=== PATIENT | female | born 1930 | race Caucasian/White ===

== ENCOUNTER 2016-05-11 11:39 | Inpatient (IN) | payer MEDICARE ==
[2016-05-11] MEDS ORDERED: SODIUM CHLORIDE 0.9% 1,000 ML IV STA (12:28)
[2016-05-11] MEDS ORDERED: HYDROmorphone 1 MG/ML 1 ML SYRINGE IVP STA (12:28)
[2016-05-11] MEDS ORDERED: IV VANCOMYCIN PER PHARMACY 1 EACH MISC MISCELLANE PRN (12:30)
[2016-05-11] MEDS ORDERED: AMPICILLIN-SULBACTAM 3 GM in SODIUM CHLORIDE 0.9% 100 ML IVPB STA (12:30)
[2016-05-11] MEDS ORDERED: VANCOMYCIN 1,000 MG in SODIUM CHLORIDE 0.9% 250 ML IVPB STA (12:30)
[2016-05-11 13:56] LABS: Basophils # (A) 0.1 k/uL (0-0.2); Basophils % (A) 1 %; CH 31.9; CHCM 32.1; Eosinophils # (A) 0.1 k/uL (0-0.7); Eosinophils % (A) 1 %; HCT 35.1 % (34.0-46.0); HDW 2.41; Luc % (Auto) 1; Lymphocytes # (A) 0.9 k/uL (1.0-4.8); Lymphocytes % (A) 13 %; MCH 31.4 pg (25.0-35.0); MCHC 31.4 g/dL (31.0-37.0); Macrocytosis Slight; Mean Platelet Volume 7.5; Monocytes # (A) 0.6 k/uL (0-1.0); Monocytes % (A) 8 %; Neutrophils # (A) 5.3 k/uL (1.3-7.7); Neutrophils % (A) 76 %; RBC 3.51 m/uL (3.80-5.40); RDW 13.9 % (11.5-15.5); WBC (Perox) 7.63
[2016-05-11 14:11] LABS: INR 1.1 (<1.1); Partial Thromboplastin Time 25.7 sec (22.0-30.0); Prothrombin Time 10.7 sec (9.0-12.0)
[2016-05-11 14:21] LABS: Calcium 8.8 mg/dL (8.4-10.2); Potassium 5.2 mmol/L (3.5-5.1); Total Bilirubin 0.7 mg/dL (0.2-1.3); Total Protein 6.6 g/dL (6.3-8.2)
[2016-05-11 14:40] LABS: Erythrocyte Sedimentation Rate 62 mm/hr (0-20)
--- NOTE | 2016-05-11 14:59 | ED ---
General Adult HPI - General Chief complaint: Recheck/Abnormal Lab/Rx Stated complaint: poss infection on leg Source: family Mode of arrival: wheelchair Limitations: no limitations - History of Present Illness Initial comments: This 85-year-old white female presents with a complaint of a left leg infection. This is been present for approximately 2 months. She has had worsening of her symptoms in the last past week. Family relates that it is more painful and exhibiting a malodorous scent. She normally gets treated at the wound care center. They apparently have applied different types of ointments or creams to try to get it better. She also has a home visiting nurse 2 times a week to recheck the wound. They deny any known fever, chest pain, or shortness of breath. Her leg pain is moderate. She apparently has been somewhat more fatigued her drowsy recently per family. No other complaints or modifying factors. - Related Data Home Medications Medication Instructions Recorded Confirmed Levothyroxine Sodium [Synthroid] 125 mcg PO DAILY 10/14/14 05/11/16 Metoprolol Tartrate [Lopressor] 50 mg PO BID 10/14/14 05/11/16 levETIRAcetam [Keppra] 500 mg PO BID 10/14/14 05/11/16 Gabapentin [Neurontin] 300 mg PO TID 02/08/15 05/11/16 ALPRAZolam 0.5 mg PO TID PRN 12/13/15 05/11/16 Aspirin EC [Ecotrin Low Dose] 81 mg PO DAILY 12/13/15 05/11/16 Furosemide 20 mg PO MOWEFR 12/13/15 05/11/16 Losartan Potassium 100 mg PO DAILY 12/13/15 05/11/16 Potassium Chloride ER [K-Dur 20] 20 meq PO BID 01/08/16 05/11/16 Donepezil [Aricept] 10 mg PO DAILY 05/11/16 05/11/16 Magnesium Chloride [Slow-Mag] 64 mg PO DAILY 05/11/16 05/11/16 Allergies Allergy/AdvReac Type Severity Reaction Status Date / Time cat dander Allergy Unknown Verified 05/11/16 13:55 dog dander Allergy Unknown Verified 05/11/16 13:55 Sulfa (Sulfonamide Allergy Unknown Verified 05/11/16 13:55 Antibiotics) dust Allergy Unknown Uncoded 05/11/16 11:46 Review of Systems ROS Statement: Those systems with pertinent positive or pertinent negative responses have been documented in the HPI. ROS Other: All systems not noted in ROS Statement are negative. 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 History of Any Multi-Drug Resistant Organisms: None Reported Past Surgical History: Adenoidectomy, Bladder Surgery, Breast Surgery, Hysterectomy, Joint Replacement, Orthopedic Surgery, Tonsillectomy Additional Past Surgical History / Comment(s): Brain surgery 1977, left ankle ORIF surgery, R hip replacement, kevin in L leg due to fx greater trochanteric, R shoulder arthroscopy, bladder surgery, L breast lumpectomy, cataract bilat eyes , colonoscopy 2011 due to rectal bleed. Past Anesthesia/Blood Transfusion Reactions: No Reported Reaction Additional Past Anesthesia/Blood Transfusion Reaction / Comment(s): Pt recieved blood in 2006 post operatively. Past Psychological History: No Psychological Hx Reported Additional Psychological History / Comment(s): Pt's zac and 2 granddaughters live with patient. Pt is wheel chair bound. Pt states she receives home care not sure what group comes out. A nurse comes in and examines the pt and checks V /S and pt states does L lower leg wound care. Pt feeds herself. Family assist her up into w/c and zac helps her bathe. Son-in-law drives pt to appts. She states her grand daughter manages her medication. Smoking Status: Never smoker Past Alcohol Use History: None Reported Past Drug Use History: None Reported - Past Family History Mother Family Medical History: No Reported History Son(s) Family Medical History: Diabetes Mellitus General Exam - General Exam Comments Initial Comments: GENERAL: The patient is well nourished and well hydrated. VITAL SIGNS: Heart rate, blood pressure, respiratory rate reviewed as recorded in nurse's notes. EYES: Pupils are round and reactive. Extraocular movements are intact. No conjunctival / lid redness or swelling. ENT: No external evidence of injury, swelling, or ecchymosis. Airway is patent. Throat is clear. NECK: Nontender. No swelling or evidence of injury. No subcutaneous emphysema. Trachea is midline. No thyroid mass. HEART: Regular rate and rhythm. Good peripheral pulses. LUNGS/CHEST: Breath sounds clear and equal bilaterally. No rales, rhonchi, or wheezes. No ecchymosis, subcutaneous emphysema, or tenderness. ABDOMEN: Abdomen soft without tenderness. No palpable masses or organomegaly. No peritoneal signs. No abdominal wall swelling or ecchymosis. EXTREMITIES: No extremity tenderness. Normal muscle tone and function. No thoracolumbar tenderness. NEUROLOGIC: Sensation is grossly intact. Cranial nerve exam reveals face is symmetrical, tongue is midline, speech is clear. SKIN: There are 2 large ulcerative lesions present to the left leg distally. There is a malodorous scent. This is on the lateral aspect of the left leg. There is eschar type formation over the middle with surrounding erythema but no current drainage. PSYCHIATRIC: Alert and oriented. Appropriate behavior and judgment. Limitations: no limitations Course Vital Signs 05/11/16 05/11/16 05/11/16 11:42 15:04 15:05 Temperature 97.8 F 97.1 F L Pulse Rate 83 79 Respiratory 14 18 Rate Blood Pressure 126/60 145/64 O2 Sat by Pulse 90 L 100 Oximetry Medical Decision Making - Medical Decision Making The patient was seen and examined. All diagnostics were reviewed. The EKG shows atrial fibrillation with a heart rate of 66. The patient also has a right bundle-branch block and possible LVH. The QRS duration is 132, QTC intervals 440. An IV is started patient receives vancomycin as well as Unasyn and some pain medication. She is feeling improved on recheck. The laboratories reviewed with no overt significant abnormalities this point. The patient had an x-ray of her left leg. This does show previous open reduction internal fixation of her distal left fibula. No acute abnormalities are identified. Chest x-ray is also completed as patient's pulse ox was 90%. This does not show any evidence of pneumonia but does show some mild pulmonary vascular congestion. The case is discussed with internal medicine and patient admitted to the hospital with infectious disease and vascular surgery to consult. - Lab Data Result diagrams: 05/11/16 13:45 05/11/16 13:45 Lab Results 05/11/16 05/11/16 05/11/16 Range/Units 13:45 13:45 13:45 WBC 7.0 (3.8-10.6) k/uL RBC 3.51 L (3.80-5.40) m/uL Hgb 11.0 L (11.4-16.0) gm/dL Hct 35.1 (34.0-46.0) % MCV 100.0 (80.0-100.0) fL MCH 31.4 (25.0-35.0) pg MCHC 31.4 (31.0-37.0) g/dL RDW 13.9 (11.5-15.5) % Plt Count 233 (150-450) k/uL Neutrophils % 76 % Lymphocytes % 13 % Monocytes % 8 % Eosinophils % 1 % Basophils % 1 % Neutrophils # 5.3 (1.3-7.7) k/uL Lymphocytes # 0.9 L (1.0-4.8) k/uL Monocytes # 0.6 (0-1.0) k/uL Eosinophils # 0.1 (0-0.7) k/uL Basophils # 0.1 (0-0.2) k/uL Macrocytosis Slight ESR 62 H (0-20) mm/hr PT 10.7 (9.0-12.0) sec INR 1.1 (<1.1) APTT 25.7 (22.0-30.0) sec Sodium 142 (137-145) mmol/L Potassium 5.2 H (3.5-5.1) mmol/L Chloride 108 H (98-107) mmol/L Carbon Dioxide 22 (22-30) mmol/L Anion Gap 12 mmol/L BUN 19 H (7-17) mg/dL Creatinine 1.09 H (0.52-1.04) mg/dL Est GFR (MDRD) Af Amer 58 (>60 ml/min/1.73 sqM) Est GFR (MDRD) Non-Af 47 (>60 ml/min/1.73 sqM) Glucose 95 (74-99) mg/dL Calcium 8.8 (8.4-10.2) mg/dL Total Bilirubin 0.7 (0.2-1.3) mg/dL AST 15 (14-36) U/L ALT 25 (9-52) U/L Alkaline Phosphatase 84 (38-126) U/L C-Reactive Protein 64.4 H (<10.0) mg/L Total Protein 6.6 (6.3-8.2) g/dL Albumin 3.2 L (3.5-5.0) g/dL Disposition Clinical Impression: Chronic ulcer of ankle, Skin infection Disposition: ADMITTED IP TO THIS [facility] Condition: Fair Time of Disposition: 15:35 Decision Date: 05/11/16 Decision Time: 15:35
[2016-05-11] MEDS ORDERED: NALOXONE 0.4 MG/ML 1 ML VIAL IV PRN (15:00)
[2016-05-11] MEDS ORDERED: ONDANSETRON 4 MG/2 ML VIAL IVP PRN (15:00)
[2016-05-11 15:01] LABS: C Reactive Protein 64.4 mg/L (<10.0)
--- NOTE | 2016-05-11 15:06 | XR ---
EXAMINATION TYPE: XR tibia fibula LT DATE OF EXAM: 05/11/2016 2:53 PM COMPARISON: 10/01/2012 HISTORY: Pain for 2 months TECHNIQUE: 2 views FINDINGS: There is a plate fixing a distal fibula. There is vascular calcification. There is osteopen ia at the ankle joint and knee joint. I see no acute fracture. IMPRESSION: There is osteopenia that is new compared to old exam. No acute bony abnormality.
--- NOTE | 2016-05-11 15:08 | XR ---
EXAMINATION TYPE: XR chest 2V DATE OF EXAM: 05/11/2016 2:53 PM COMPARISON: 01/31/2016 HISTORY: Weakness. Chest pain. TECHNIQUE: Frontal and lateral views of the chest are obtained. FINDINGS: There is a poor inspiration. There is some atelectasis at the left lung base. Thoracic aor ta is atheromatous. There is mild pulmonary congestion. I see no pleural effusion. Bones are osteopen ic. IMPRESSION: Inspiration is less than old exam. There is left basilar atelectasis. Mild pulmonary con gestion without overt heart failure.
[2016-05-11 17:35] LABS: Glucose,Whole Blood 82 mg/dL (75-99)
[2016-05-11] MEDS: metroNIDAZOLE-NS PMX 500 MG in SALINE 1 100ML.BAG IVPB SCH ×2 (17:40→22:54)
[2016-05-11] MEDS: SODIUM CHLORIDE 0.9% 1,000 ML IV SCH (17:40)
[2016-05-11] MEDS: GABAPENTIN 300 MG CAP PO SCH ×2 (17:42→21:34)
[2016-05-11] MEDS: AMPICILLIN-SULBACTAM 3 GM in SODIUM CHLORIDE 0.9% 100 ML IVPB SCH (18:50)
[2016-05-11] MEDS: METOPROLOL TARTRATE 50 MG TAB PO SCH (21:34)
[2016-05-11] MEDS: POTASSIUM CHLORIDE ER 20 MEQ TAB.ER PO SCH (21:34)
[2016-05-11] MEDS: levETIRAcetam 500 MG TAB PO SCH (21:35)
[2016-05-11] MEDS: ACETAMINOPHEN TAB 325 MG TAB PO PRN (21:45)
[2016-05-11] MEDS: ALPRAZolam 0.5 MG TAB PO PRN (21:46)
[2016-05-11 21:54] LABS: Glucose,Whole Blood 149 mg/dL (75-99)
[2016-05-12] MEDS: AMPICILLIN-SULBACTAM 3 GM in SODIUM CHLORIDE 0.9% 100 ML IVPB SCH ×3 (00:27→12:51)
[2016-05-12] MEDS: HYDROmorphone 1 MG/ML 1 ML SYRINGE IV PRN ×2 (02:51→18:40)
[2016-05-12] MEDS: LEVOTHYROXINE 125 MCG TAB PO SCH (05:30)
[2016-05-12 07:22] LABS: Glucose,Whole Blood 84 mg/dL (75-99)
[2016-05-12] MEDS: PANTOPRAZOLE 40 MG/10 ML VIAL IV SCH (08:27)
[2016-05-12] MEDS: VANCOMYCIN 1,750 MG in SODIUM CHLORIDE 0.9% 250 ML IVPB SCH (08:27)
[2016-05-12] MEDS: DONEPEZIL 10 MG TAB PO SCH (08:28)
[2016-05-12] MEDS: POTASSIUM CHLORIDE ER 20 MEQ TAB.ER PO SCH ×2 (08:28→20:37)
[2016-05-12] MEDS: METOPROLOL TARTRATE 50 MG TAB PO SCH ×2 (08:28→20:37)
[2016-05-12] MEDS: ENOXAPARIN 40 MG/0.4 ML SYRINGE SQ SCH (08:28)
[2016-05-12] MEDS: ASPIRIN 81 MG CHEW PO SCH (08:28)
[2016-05-12] MEDS: levETIRAcetam 500 MG TAB PO SCH ×2 (08:28→20:37)
[2016-05-12] MEDS: LOSARTAN 50 MG TAB PO SCH (08:28)
[2016-05-12] MEDS: MAGNESIUM OXIDE 250 MG TAB PO SCH (08:28)
[2016-05-12] MEDS: GABAPENTIN 300 MG CAP PO SCH ×3 (08:28→20:37)
[2016-05-12] MEDS: metroNIDAZOLE-NS PMX 500 MG in SALINE 1 100ML.BAG IVPB SCH ×3 (11:30→23:39)
[2016-05-12 12:31] LABS: Glucose,Whole Blood 76 mg/dL (75-99)
[2016-05-12] MEDS: SODIUM CHLORIDE 0.9% 1,000 ML IV SCH (12:51)
--- NOTE | 2016-05-12 13:47 | HP ---
DATE OF ADMISSION: 05/11/2016 PRESENTING COMPLAINT: Infected left leg ulcer. HISTORY OF PRESENTING COMPLAINT: This is an 85-year-old patient who follows with Dr. Casey. Patient's chronic stable medical conditions include COPD, stroke with left-sided weakness, dementia, diabetes mellitus type 2, GERD, hyperlipidemia, hypertension, seizure disorder. Patient being treated for left leg wound by Dr. De Leon [facility]. Patient has multiple family members living at home. Patient's wound on the left leg started to deteriorate. Foul smelling with discharge. Hence, patient was sent in. REVIEW OF SYSTEMS: CONSTITUTIONAL: Tired. HEENT: Decreased hearing. RESPIRATORY: None. CARDIOVASCULAR: None. GENITOURINARY: None. MUSCULOSKELETAL: Pain in many joints. DERMATOLOGICAL: Left leg wound. HEMATOLOGIC: None. LYMPHATICS: None. PSYCHIATRY: Forgetful. NEUROLOGICAL: Left-sided weakness. PAST MEDICAL HISTORY: COPD, stroke with left-sided weakness, dementia, diabetes mellitus type 2, GERD, GI bleed, hyperlipidemia, hypertension, memory impairment, osteoarthritis, seizure disorder, breast cancer, lumpectomy, irregular heartbeat, seizure disorder 2000, arthritis, peptic ulcer disease, hypothyroidism, umbilical hernia, varicosities, left leg wound. PAST SURGICAL HISTORY: Bladder surgery, hysterectomy, left ankle ORIF, right hip replacement, left leg fracture greater trochanter, right shoulder arthroscopy, left breast lumpectomy. SOCIAL HISTORY: Patient has 2 daughters, granddaughters. She is able to feed herself. No smoking. No alcohol. FAMILY HISTORY: Mother had 2 strokes. HOME MEDICATIONS: 1. Keppra 500 mg p.o. b.i.d. 2. Potassium 20 mEq b.i.d. 3. Lopressor 50 mg p.o. b.i.d. 4. Slow-Mag 64 mg p.o. daily. 5. Losartan 100 mg p.o. daily. 6. Synthroid 125 mcg p.o. daily. 7. Neurontin 300 mg p.o. t.i.d. 8. Lasix 20 mg p.o. Friday, Friday and Friday. 9. Aricept 10 mg p.o. daily. 10. Aspirin 81 mg p.o. daily. 11. Xanax 0.5 t.i.d. p.r.n. ALLERGIES TO CAT, DOG, SULFUR. On examination, temperature 97.8, pulse 83, respiratory rate 14, blood pressure 120/60, pulse ox 98% on room air. GENERAL APPEARANCE: Well built, BMI of 42, sitting up, tired appearing. EYES: Pupils equal. Conjunctivae normal. HEENT: Oral cavity normal. NECK: JVD not raised. Mass not palpable. RESPIRATORY: Effort normal. LUNGS: Fair entry. CARDIOVASCULAR: First and second sounds normal. No edema. ABDOMEN: Soft, nontender. Liver and spleen not palpable. LYMPHATIC: No lymph nodes palpable in neck or axillae. PSYCHIATRY: Alert and oriented x3. Mood and affect low appearing. NEUROLOGICAL: Pupils equal. Cranial nerves intact. EXTREMITIES: The patient has eschar on the left lateral aspect. A very foul smelling anaerobic smell. An area of white discoloration too and necrosis present. Picture will be in the patient's nursing chart. INVESTIGATIONS: White count 7, hemoglobin 11, potassium 5.2, BUN 19, creatinine 1.09. ASSESSMENT: 1. Acute severe infected left lower extremity left wound having failed outpatient treatment in a diabetic patient, probably from neuropathy. 2. Left hemiparesis from old stroke in a right-handed patient. 3. Alzheimer's dementia late onset with no behavioral disturbance. 4. Diabetes mellitus type 2, chronically on oral hypoglycemic. 5. Gastroesophageal reflux disease. 6. Hyperlipidemia. 7. Essential hypertension. 8. Primary osteoarthritis in multiple joints. 9. Chronic seizure disorder. PLAN: Patient is put on vancomycin. Because of the anaerobic smell will also add Flagyl. Consultation will be done to Dr. De Leon from vascular surgery and Dr. Shah from infectious disease. Home medications are resumed.
[2016-05-12 17:22] LABS: Glucose,Whole Blood 52 mg/dL (75-99)
[2016-05-12 17:31] LABS: Glucose,Whole Blood 64 mg/dL (75-99)
[2016-05-12 18:21] LABS: Glucose,Whole Blood 94 mg/dL (75-99)
[2016-05-12] MEDS: COLLAGENASE 250 UNIT/GM OINTMENT 30 GM TUBE TOPICAL SCH (18:52)
[2016-05-12 21:22] LABS: Glucose,Whole Blood 81 mg/dL (75-99)
[2016-05-13] MEDS: ALPRAZolam 0.5 MG TAB PO PRN (02:35)
[2016-05-13] MEDS: LEVOTHYROXINE 125 MCG TAB PO SCH (06:55)
[2016-05-13 07:38] LABS: Glucose,Whole Blood 71 mg/dL (75-99)
[2016-05-13] MEDS: metroNIDAZOLE-NS PMX 500 MG in SALINE 1 100ML.BAG IVPB SCH ×3 (07:39→23:39)
[2016-05-13] MEDS: VANCOMYCIN 1,750 MG in SODIUM CHLORIDE 0.9% 250 ML IVPB SCH (08:42)
[2016-05-13] MEDS ORDERED: FUROSEMIDE 20 MG TAB PO SCH (09:00)
--- NOTE | 2016-05-13 09:47 | P.GSCN ---
History of Present Illness History of present illness: 85-year-old white female, patient is known to me from the wound clinic she has developed a large wound on the left leg lateral aspect with necrotic skin and has been treated with local wound care and also she has some blistering is coming home the wound has become larger and and infected there is marked large area of skin necrosis noted at the lateral aspect of the leg Medical history history of A. fib, history of COPD, history of hypertension, history of seizure disorder, surgical history patient had a history of breast cancer CVA in the past infected left arm and leg Surgical history patient had hysterectomy and Breast Cancer Surgery in the past On Examination Patient Patient Has a Dementia Neck Is Supple No Free Range Of Motion Chest Examination Chest Chest Is Clear First and Second Sound Is Normal Abdomen Soft Nontender Femoral Pulses Are Present Posterior Tibial Dorsal Pedis Not Palpable Patient Has a Large Wound Lateral Aspect of the Left Leg with the Necrotic Skin Plan Is We Will Discuss with the Family Patient Has a Poor Circulation Healing Is Going to Be Issue We Will Discuss about a Major Amputation Thank You Very Much Past Medical History Past Medical History: Atrial Fibrillation, Cancer, Chest Pain / Angina, COPD, CVA/TIA, Dementia, Diabetes Mellitus, GERD/Reflux, GI Bleed, Hyperlipidemia, Hypertension, Memory Impairment, Osteoarthritis (OA), Pneumonia, Seizure Disorder, Skin Disorder, Thyroid Disorder, Vascular Disorder Additional Past Medical History / Comment(s): lt adrenal mass, breast cancer with lumpectomy, NIDDM type II, 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 History of Any Multi-Drug Resistant Organisms: None Reported Past Surgical History: Adenoidectomy, Bladder Surgery, Breast Surgery, Hysterectomy, Joint Replacement, Orthopedic Surgery, Tonsillectomy Additional Past Surgical History / Comment(s): Brain surgery 1977, left ankle ORIF surgery, R hip replacement, kevin in L leg due to fx greater trochanteric, R shoulder arthroscopy, bladder surgery, L breast lumpectomy, cataract bilat eyes , colonoscopy 2011 due to rectal bleed. Past Anesthesia/Blood Transfusion Reactions: No Reported Reaction Additional Past Anesthesia/Blood Transfusion Reaction / Comm: Pt recieved blood in 2006 post operatively. Past Psychological History: No Psychological Hx Reported Additional Psychological History / Comment(s): Pt's zac and 2 granddaughters live with patient. Pt is wheel chair bound. Pt states she receives home care not sure what group comes out. A nurse comes in and examines the pt and checks V /S and pt states does L lower leg wound care. Pt feeds herself. Family assist her up into w/c and zac helps her bathe. Son-in-law drives pt to appts. She states her grand daughter manages her medication. Smoking Status: Never smoker Past Alcohol Use History: None Reported Past Drug Use History: None Reported - Past Family History Mother Family Medical History: No Reported History Son(s) Family Medical History: Diabetes Mellitus Medications and Allergies Home Medications Medication Instructions Recorded Confirmed Type Levothyroxine Sodium [Synthroid] 125 mcg PO DAILY 10/14/14 05/11/16 History Metoprolol Tartrate [Lopressor] 50 mg PO BID 10/14/14 05/11/16 History levETIRAcetam [Keppra] 500 mg PO BID 10/14/14 05/11/16 History Gabapentin [Neurontin] 300 mg PO TID 02/08/15 05/11/16 History ALPRAZolam 0.5 mg PO TID PRN 12/13/15 05/11/16 History Aspirin EC [Ecotrin Low Dose] 81 mg PO DAILY 12/13/15 05/11/16 History Furosemide 20 mg PO MOWEFR 12/13/15 05/11/16 History Losartan Potassium 100 mg PO DAILY 12/13/15 05/11/16 History Potassium Chloride ER [K-Dur 20] 20 meq PO BID 01/08/16 05/11/16 History Donepezil [Aricept] 10 mg PO DAILY 05/11/16 05/11/16 History Magnesium Chloride [Slow-Mag] 64 mg PO DAILY 05/11/16 05/11/16 History Allergies Allergy/AdvReac Type Severity Reaction Status Date / Time cat dander Allergy Unknown Verified 05/11/16 13:55 dog dander Allergy Unknown Verified 05/11/16 13:55 Sulfa (Sulfonamide Allergy Unknown Verified 05/11/16 13:55 Antibiotics) dust Allergy Unknown Uncoded 05/11/16 11:46 Surgical - Exam Vital Signs Temp Pulse Resp BP Pulse Ox 97.8 F 83 14 126/60 90 L 05/11/16 11:42 05/11/16 11:42 05/11/16 11:42 05/11/16 11:42 05/11/16 11:42 Results - Labs 05/11/16 13:45 05/11/16 13:45 Abnormal Lab Results - Last 24 Hours (Table) 05/12/16 05/12/16 05/13/16 Range/Units 17:02 17:28 07:33 POC Glucose (mg/dL) 52 L 64 L 71 L (75-99) mg/dL Microbiology - Last 24 Hours (Table) 05/12/16 15:00 Gram Stain - Preliminary Leg - Left Wound Culture - Preliminary 05/12/16 15:00 Anaerobic Culture - Preliminary Leg - Left
--- NOTE | 2016-05-13 09:59 | PN ---
DATE OF SERVICE: 05/12/2016 PRESENTING COMPLAINT: Infected left lower extremity. INTERVAL HISTORY: This patient with multiple medical problems, really foul smelling necrotic, possibly fungal, infected left lower extremity wound, which has been followed as an outpatient. Patient has a very strong aerobic odor in the room. Review of systems done for constitutional, cardiovascular, GI, pulmonary; dermatologic; relevant findings as above. Current medications are reviewed that include IV Flagyl, Vanco and Unasyn. On examination, temperature 98.9, pulse 76, respiratory rate 16, blood pressure 100/53, pulse ox 96% on room air. GENERAL APPEARANCE: Lying in bed, tired appearing. EYES: Conjunctivae normal. NECK: JVD not raised. RESPIRATORY: Effort normal. Lungs are clear. CARDIOVASCULAR: First and second sounds normal. No edema. ABDOMEN: Soft, nontender. Liver and spleen not palpable. PSYCHIATRY: Alert and oriented x3. Mood and affect normal. LOWER EXTREMITY: Exam unchanged from yesterday. INVESTIGATIONS: Accu-Cheks are noted ASSESSMENT: 1. Acute severe infected left lower extremity wound having failed outpatient treatment. Looks to be rather severe and may even require amputation from what looks like extremely necrotic, very strong anaerobic odor, probably from a diabetic patient underlying neuropathy. 2. Left hemiparesis from old stroke in right-handed patient. 3. Alzheimer's dementia, late onset, no behavioral disturbance. 4. Diabetes mellitus type 2, chronically on oral hyperglycemic. 5. Gastroesophageal reflux disease. 6. Hyperlipidemia. 7. Essential hypertension. 8. Primary osteoarthritis of multiple joints. 9. Chronic seizure disorder. PLAN: Continue current medication and treatment plan. Dr. Shah of Infectious Disease is on the case and Dr. De Leon is just looking at it. The patient may need amputation. We will await further input from my colleagues.
[2016-05-13] MEDS: ASPIRIN 81 MG CHEW PO SCH (10:04)
[2016-05-13] MEDS: levETIRAcetam 500 MG TAB PO SCH ×2 (10:04→20:09)
[2016-05-13] MEDS: POTASSIUM CHLORIDE ER 20 MEQ TAB.ER PO SCH ×2 (10:04→20:11)
[2016-05-13] MEDS: ENOXAPARIN 40 MG/0.4 ML SYRINGE SQ SCH (10:04)
[2016-05-13] MEDS: MAGNESIUM OXIDE 250 MG TAB PO SCH (10:04)
[2016-05-13] MEDS: GABAPENTIN 300 MG CAP PO SCH ×3 (10:04→20:59)
[2016-05-13] MEDS: METOPROLOL TARTRATE 50 MG TAB PO SCH ×2 (10:04→20:11)
[2016-05-13] MEDS: COLLAGENASE 250 UNIT/GM OINTMENT 30 GM TUBE TOPICAL SCH (10:05)
[2016-05-13] MEDS: LOSARTAN 50 MG TAB PO SCH (10:05)
[2016-05-13] MEDS: DONEPEZIL 10 MG TAB PO SCH (10:05)
[2016-05-13] MEDS: PANTOPRAZOLE 40 MG/10 ML VIAL IV SCH (10:05)
[2016-05-13] MEDS: SODIUM CHLORIDE 0.9% 1,000 ML IV SCH (10:06)
[2016-05-13] MEDS: HYDROmorphone 1 MG/ML 1 ML SYRINGE IV PRN (10:15)
[2016-05-13 11:54] LABS: Glucose,Whole Blood 109 mg/dL (75-99)
--- NOTE | 2016-05-13 12:59 | CONS ---
DATE OF CONSULTATION: 05/12/2016 REASON FOR CONSULTATION: Left leg wound infection. HISTORY OF PRESENT ILLNESS: The patient is an 85 -year-old female who apparently has a wound on the left lower leg on the lateral side that has been there for more than two months now. The patient has been under the care of [facility] Apparently a different type of dressing has been used to help it heal but has not been healing over the last one week. The wound has become more painful. However, unfortunately, the patient is not able to describe the pain any further and has been more malodorous odor. No high-grade fever, rigors or chills has been noticed. With worsening discoloration which is now black eschar and smell and pain. The patient has been brought in to the ER for further evaluation. Patient did have x-rays of the neck which are negative for any bony changes. The patient was started on vancomycin and Unasyn and Flagyl. ID was asked to see the patient on examination for further recommendations in addition to the vascular surgery. All of this information has been obtained from review of the chart and talking to nursing staff, as the patient is not a very good historian and no family members available at bedside. REVIEW OF SYSTEMS: Could not be reliably obtained. The positive points have been mentioned in the HPI. PAST MEDICAL HISTORY: Significant for atrial fibrillation, coronary artery disease, COPD, CVA/TIA dementia, diabetes mellitus, gastroesophageal reflux disease, hypertension, hyperlipidemia, seizure disorder and breast cancer. PAST SURGICAL HISTORY: Lumpectomy, hysterectomy, tonsillectomy, left ankle ORIF and recent right hip replacement. SOCIAL HISTORY: No history of smoking, drinking or drug use. FAMILY HISTORY: Mother with history of diabetes mellitus. ALLERGY TO SULFA. MEDICATIONS: Currently include the patient is on: 1. Tylenol. 2. Xanax. 3. Aspirin. 4. Aricept. 5. Lovenox. 6. Neurontin. 7. Dilaudid. 8. Keppra. 9. Synthroid. 10. Cozaar. 11. Mag oxide. 12. Lopressor. 13. Flagyl. 14. Vancomycin. 15. Zofran. On examination, blood pressure is 114/63 with a pulse of 57, temperature 97.2. He is 98% on room air. General description is an elderly female, lying in bed in no distress. No tachypnea or accessory muscle of respiration use. HEENT examination shows slight pallor. There is no scleral icterus. Oral mucosal membranes dry. NECK: Trachea is central. No thyromegaly. LUNGS: Unlabored breathing. Clear to auscultation anteriorly. HEART: S1, S2 with regular rate. ABDOMEN: Soft, no tenderness. Left lower leg wound with black eschar and some surrounding erythema and foul smelling, wound base was evaluated and cultures were obtained. NEUROLOGICAL: The patient is awake, alert, oriented times three. Mood and affect normal. LABS: BUN of 19 and creatinine 1.09, creatinine 5.2. Liver enzymes normal. Hemoglobin is 11.2. No blood cultures were done. X-ray report with no new changes. DIAGNOSTIC IMPRESSION AND PLAN: Patient with left leg wound with secondary cellulitis with very malodorus smell. The wound with black eschar failing outpatient local treatment with likely a component of cellulitis. Unfortunately patient started on broad spectrum antibiotics. However, no cultures have been done that will decrease yield of these cultures that will ultimately decide the discharge antibiotic therapy. PLAN: 1. Wound cultures have been obtained. We will be requesting the wound cultures at the time of surgical debridement as the wound needs to be surgically debrided. 2. For local wound care, we will apply Santyl. For now, followed by moist dressing. 3. Keep the area off pressure. 4. Continue patient on vancomycin and Flagyl. However, discontinue the Unasyn. 5. We will follow up on the clinical condition and cultures to further adjust the medication if needed. Thank you for this consultation. Will follow this patient along with you. MIKE
--- NOTE | 2016-05-13 15:43 | P.PN ---
Subjective 85-year-old female was admitted to the hospital with a left lower extremity wound. Patient was a prickly started on Flagyl and vancomycin. Unknowing the pictures in the chart and on examination. Patient has a deep ulcer with prior medical or ankle fracture can be visually seen. Thereafter most of the history is obtained from chart review. Patient has advanced dementia and does not answer any questions properly. Objective - Vital Signs Vital signs: Vital Signs Temp 97.5 F L 05/13/16 07:00 Pulse 61 05/13/16 07:00 Resp 16 05/13/16 08:00 BP 109/54 05/13/16 07:00 Pulse Ox 98 05/13/16 07:00 Intake & Output 05/12/16 05/13/16 05/13/16 18:59 06:59 18:59 Intake Total 900 100 Balance 900 100 Intake: IV 100 Ampicillin-Sulbactam 3 gm 100 In Sodium Chloride 0.9% 100 ml @ 100 mls/hr IVPB Q6HR [facility] Rx#:[id number] Intake, IV Titration 800 Amount Sodium Chloride 0.9% 1, 800 000 ml @ 50 mls/hr IV . Q20H [facility] HUGO Rx#:[id number] Oral 100 Other: Voiding Method Incontinent Diaper Incontinent # Voids 1 1 1 - Exam Gen. appearance does not appear to be any distress Lungs diminished but sounds at the bases no rhonchi or wheezing Abdomen is soft nontender organomegaly Heart S1-S2 heard a systolic murmurs appreciated Lower extremities significant deep ulcers more predominantly in the posterior side there is another ulcer superiorly close to the joint.knee joint - Labs CBC & Chem 7: 05/11/16 13:45 05/11/16 13:45 Labs: Abnormal Lab Results - Last 24 Hours (Table) 05/12/16 05/12/16 05/13/16 Range/Units 17:02 17:28 07:33 POC Glucose (mg/dL) 52 L 64 L 71 L (75-99) mg/dL 05/13/16 Range/Units 11:51 POC Glucose (mg/dL) 109 H (75-99) mg/dL Microbiology - Last 24 Hours (Table) 05/12/16 15:00 Gram Stain - Preliminary Leg - Left Wound Culture - Preliminary 05/12/16 15:00 Anaerobic Culture - Preliminary Leg - Left Assessment and Plan Plan: #1 significant left lower x-ray cellulitis/concern for osteoarthritis #2 advanced dementia #3 hypothyroidism #4 history of hypertension #5 dyslipidemia #6 history of hypertension #7 peripheral neuropathy Plan Patient is recommended to undergo a left AKA. I did direct the RN to inform the family in regards to this. If surgical intervention is to aggressive goals of care should be addressed. With patient's advanced dementia and patient being bedridden prognosis is poor . Goals of care changing to comfort measures only were also be appropriate if family denies surgical intervention. Continue antibiotics. Blood pressures are appropriate. Continue ongoing care
[2016-05-13 16:54] LABS: Glucose,Whole Blood 69 mg/dL (75-99)
[2016-05-13 17:20] LABS: Glucose,Whole Blood 93 mg/dL (75-99)
[2016-05-13 21:09] LABS: Glucose,Whole Blood 109 mg/dL (75-99)
[2016-05-14] MEDS: HYDROmorphone 1 MG/ML 1 ML SYRINGE IV PRN ×2 (03:14→22:47)
[2016-05-14] MEDS ORDERED: VANCOMYCIN TROUGH DUE 1 EACH MISC MISCELLANE ONE (06:00)
[2016-05-14] MEDS: VANCOMYCIN 1,750 MG in SODIUM CHLORIDE 0.9% 250 ML IVPB SCH (06:41)
[2016-05-14] MEDS: SODIUM CHLORIDE 0.9% 1,000 ML IV SCH (06:41)
[2016-05-14] MEDS: LEVOTHYROXINE 125 MCG TAB PO SCH (06:41)
[2016-05-14 06:45] LABS: Basophils % (A) 0 %; CH 31.3; CHCM 30.9; Eosinophils # (A) 0.2 k/uL (0-0.7); Eosinophils % (A) 3 %; HDW 2.46; HGB 9.8 gm/dL (11.4-16.0); Hypochromasia Slight; Luc # (Auto) 0.14; Luc % (Auto) 2; Lymphocytes # (A) 1.2 k/uL (1.0-4.8); Lymphocytes % (A) 18 %; MCH 31.2 pg (25.0-35.0); MCHC 30.6 g/dL (31.0-37.0); MCV 101.8 fL (80.0-100.0); Macrocytosis Slight; Mean Platelet Volume 7.8; Monocytes # (A) 0.6 k/uL (0-1.0); Monocytes % (A) 10 %; Neutrophils # (A) 4.4 k/uL (1.3-7.7); Neutrophils % (A) 67 %; RBC 3.15 m/uL (3.80-5.40); RDW 13.7 % (11.5-15.5); WBC 6.5 k/uL (3.8-10.6); WBC (Perox) 6.72
[2016-05-14 07:01] LABS: Non-African American GFR(MDRD) >60 (>60 ml/min/1.73 sqM)
--- NOTE | 2016-05-14 07:28 | PN ---
DATE OF SERVICE: 05/13/2016 Reason for follow up is left leg wound. INTERVAL HISTORY: The patient is afebrile. She has been breathing comfortably. Denies any chest pain or shortness of breath, no cough. Apparently with some pain at the left leg area. On examination, blood pressure 130/63 with a pulse of 57, temperature 97.1. She is 100% on room air. General description is an elderly female lying in bed, in no distress. RESPIRATORY SYSTEM: Unlabored breathing. Clear to auscultation anteriorly. HEART: S1, S2. Regular rate and rhythm. ABDOMEN: Soft, no tenderness. Left leg wound is current dressed, no obvious drainage on the dressing. LABS: No new labs have been obtained today. Cultures obtained yesterday are currently pending. DIAGNOSTIC IMPRESSION AND PLAN: Patient left leg wound with secondary cellulitis. Patient at this time will continue with the vancomycin and Flagyl while awaiting for the culture to finalize. Continue supportive care.
[2016-05-14 07:43] LABS: Glucose,Whole Blood 80 mg/dL (75-99)
[2016-05-14 08:07] LABS: INR 1.2 (<1.1); Prothrombin Time 12.3 sec (9.0-12.0)
--- NOTE | 2016-05-14 08:49 | XR ---
EXAMINATION TYPE: XR chest 1V portable DATE OF EXAM: 05/14/2016 8:36 AM CLINICAL HISTORY: Difficulty breathing and CHF progress study. TECHNIQUE: Single AP portable upright view of the chest is obtained. COMPARISON: Chest x-ray from May 11, 2016 and older x-ray December 13, 2015 FINDINGS: There is stable mild cardiomegaly with atherosclerotic thoracic aorta. There is persistent left mid and basilar lateral linear atelectasis and/or scarring. There is patchy right basilar atele ctasis. No suspicious focal airspace opacity, pleural effusion, or pneumothorax is seen bilaterally. Osseous structures are demineralized. There is partial visualization of surgical hardware in the left humerus through proximal humeral fracture. IMPRESSION: Overall stable findings, cardiomegaly with left lower lung linear scarring and/or atele ctasis in the periphery, no suspicious focal infiltrate is present.
[2016-05-14] MEDS: metroNIDAZOLE-NS PMX 500 MG in SALINE 1 100ML.BAG IVPB SCH ×2 (09:44→20:40)
[2016-05-14] MEDS: PANTOPRAZOLE 40 MG/10 ML VIAL IV SCH (09:46)
[2016-05-14] MEDS: levETIRAcetam 500 MG TAB PO SCH ×2 (09:46→20:41)
[2016-05-14] MEDS: GABAPENTIN 300 MG CAP PO SCH ×3 (09:46→21:42)
[2016-05-14] MEDS: MAGNESIUM OXIDE 250 MG TAB PO SCH (09:47)
[2016-05-14] MEDS: POTASSIUM CHLORIDE ER 20 MEQ TAB.ER PO SCH ×2 (09:47→20:41)
[2016-05-14] MEDS: METOPROLOL TARTRATE 50 MG TAB PO SCH ×2 (09:47→20:41)
[2016-05-14] MEDS: DONEPEZIL 10 MG TAB PO SCH (09:47)
[2016-05-14] MEDS: LOSARTAN 50 MG TAB PO SCH (09:47)
[2016-05-14] MEDS: ENOXAPARIN 40 MG/0.4 ML SYRINGE SQ SCH (09:47)
[2016-05-14] MEDS: COLLAGENASE 250 UNIT/GM OINTMENT 30 GM TUBE TOPICAL SCH (09:48)
[2016-05-14] MEDS: ASPIRIN 81 MG CHEW PO SCH (10:00)
[2016-05-14 10:52] VITALS: BMI 42.9
[2016-05-14 11:55] LABS: Glucose,Whole Blood 70 mg/dL (75-99)
[2016-05-14] MEDS ORDERED: IV FLUID CONTINUATION 1,000 ML IV ONE (13:53)
--- NOTE | 2016-05-14 14:12 | P.PN ---
Progress Note - Text 85-year-old white female, patient has a large wound left foot lateral aspect of the lower leg with skin necrosis and foul odor smell wound patient has poor circulation on the right foot and leg the left leg area and left arm has fixed paralysis patient does not walk we discussed about above-knee amputation patient and family agrees we will proceed
--- NOTE | 2016-05-14 16:31 | PN ---
DATE OF SERVICE: 05/14/2016 REASON FOR FOLLOWUP: Left leg wound and cellulitis. INTERVAL HISTORY: The patient is afebrile. She has been breathing comfortably. Denies any chest pain or cough. No abdominal pain. Still has some pain in the left leg; unable to characterize it any further. On examination, blood pressure is 156/85 with a pulse of 55, temperature 98.3. She is 96% on room air. General description is an elderly female lying in bed in no distress. RESPIRATORY SYSTEM: Unlabored breathing. Clear to auscultation anteriorly. HEART: S1, S2. Regular rate and rhythm. ABDOMEN: Soft. No tenderness. Left leg wound is currently dressed up. No obvious drainage on the dressing. LABS: Hemoglobin is 9.8, white count 6.5. Wound is showing Gram-negative bacilli. DIAGNOSTIC IMPRESSION AND PLAN: Patient with non-healing wound to the left leg area, likely pressure ulcer with necrotic skin. Continue local wound care with Santyl. on culture Gram-negative is seen. Will add Fortaz to her antibiotic regimen of vancomycin and Flagyl. Continue supportive care. MIKE
[2016-05-14] MEDS ORDERED: MIDAZOLAM 2 MG/2 ML VIAL ONE (17:19)
[2016-05-14] MEDS ORDERED: KETAMINE 10 MG/ML 20 ML VIAL ONE (17:19)
[2016-05-14] MEDS ORDERED: LACTATED RINGERS 1,000 ML BAG IV ONE (17:19)
[2016-05-14] MEDS ORDERED: ceFAZolin 1,000 MG VIAL ONE (17:19)
[2016-05-14] MEDS ORDERED: SODIUM CHLORIDE 0.9% 100 ML BAG ONE (17:19)
[2016-05-14] MEDS: SODIUM CHLORIDE 0.9% 100 ML with ceFAZolin 2,000 MG IV ONE ×4 (17:52→20:40)
[2016-05-14] MEDS ORDERED: LACTATED RINGERS 1,000 ML IV ONE (18:39)
[2016-05-14] MEDS: LACTATED RINGERS 1,000 ML IV ONE ×2 (19:04→20:40)
[2016-05-14] MEDS ORDERED: BACITRACIN 500 UNIT/GM OINT 28.4 GM TUBE TOPICAL ONE (19:06)
[2016-05-14 19:49] LABS: Glucose,Whole Blood 79 mg/dL (75-99)
[2016-05-14 21:01] LABS: Glucose,Whole Blood 82 mg/dL (75-99)
[2016-05-14] MEDS: ALPRAZolam 0.5 MG TAB PO PRN (22:53)
[2016-05-15] MEDS: metroNIDAZOLE-NS PMX 500 MG in SALINE 1 100ML.BAG IVPB SCH ×2 (00:09→10:28)
[2016-05-15] MEDS: SODIUM CHLORIDE 0.9% 1,000 ML IV SCH ×2 (00:10→21:25)
[2016-05-15] MEDS: LEVOTHYROXINE 125 MCG TAB PO SCH (06:26)
[2016-05-15 07:34] LABS: Glucose,Whole Blood 116 mg/dL (75-99)
[2016-05-15] MEDS: GABAPENTIN 300 MG CAP PO SCH ×3 (08:35→21:26)
[2016-05-15] MEDS: PANTOPRAZOLE 40 MG/10 ML VIAL IV SCH (08:35)
[2016-05-15] MEDS: ENOXAPARIN 40 MG/0.4 ML SYRINGE SQ SCH (08:35)
[2016-05-15] MEDS: DONEPEZIL 10 MG TAB PO SCH (08:35)
[2016-05-15] MEDS: POTASSIUM CHLORIDE ER 20 MEQ TAB.ER PO SCH ×2 (08:35→21:26)
[2016-05-15] MEDS: VANCOMYCIN 1,500 MG in SODIUM CHLORIDE 0.9% 250 ML IVPB SCH (08:35)
[2016-05-15] MEDS: METOPROLOL TARTRATE 50 MG TAB PO SCH ×2 (08:36→21:26)
[2016-05-15] MEDS: levETIRAcetam 500 MG TAB PO SCH ×2 (08:36→21:25)
[2016-05-15] MEDS: MAGNESIUM OXIDE 250 MG TAB PO SCH (08:36)
[2016-05-15] MEDS: COLLAGENASE 250 UNIT/GM OINTMENT 30 GM TUBE TOPICAL SCH (08:37)
[2016-05-15] MEDS: ASPIRIN 81 MG CHEW PO SCH (08:37)
[2016-05-15] MEDS: LOSARTAN 50 MG TAB PO SCH (08:37)
--- NOTE | 2016-05-15 09:38 | OP ---
DATE OF SERVICE: SURGEON: LM GARCIA MD STEEL ANALYST: PREOPERATIVE DIAGNOSIS: Gangrene of the left lower leg. POSTOPERATIVE DIAGNOSIS: Gangrene of the left lower leg. OPERATION: Left above-knee amputation. ANESTHESIA: ESTIMATED BLOOD LOSS: SPECIMENS REMOVED: COMPLICATIONS: OPERATIVE FINDINGS: DESCRIPTION OF PROCEDURE: This patient has a long history of chronic wound to the left lower extremity. [facility] and her wound got infected of the left lower extremity and there is skin necrosis noted along the incision site and patient has severe peripheral vascular disease. She also had a left-sided stroke in the past. She is nonambulatory. Discussed with the family and we arranged for a left above-knee amputation. Patient was brought to the operating room. Under spinal, left leg was prepped and draped in sterile manner. The incision was made for the anterior flap, deepened through the skin, fat, and fascia and anterior compartment of muscles were divided and then attention was paid to the posterior compartment muscles. They were divided. Femoral artery and femoral vein was isolated and divided and tied with 0 Prolene. Then the lateral incision was made, deepened through the skin, fat, and fascia. Lateral compartment of the muscles divided and then we created a posterior flap. The incision deepened through skin, fat, and fascia. Posterior compartment muscles were divided. ( ) nerve was identified and divided and tied with 0 Prolene by traction. Specimen was removed. The wound was copiously irrigated with hydrogen peroxide and saline. Hemostasis was well-controlled and anterior and posterior compartment muscles were approximated with Vicryl to cover the femur. Then fascia was approximated with 0 Vicryl with interpreted suture and skin was closed with 5-0 nylon with mattress interrupted suture. Dressing applied. Patient tolerated the procedure well. Transferred to the recovery room in satisfactory condition.
[2016-05-15] MEDS: HYDROmorphone 1 MG/ML 1 ML SYRINGE IV PRN (10:30)
[2016-05-15] MEDS: cefTRIAXone 2,000 MG in SODIUM CHLORIDE 0.9% 100 ML IVPB SCH (11:21)
[2016-05-15 12:36] LABS: Glucose,Whole Blood 107 mg/dL (75-99)
[2016-05-15 14:22] LABS: Anion Gap 13 mmol/L; Calcium 8.4 mg/dL (8.4-10.2); Carbon Dioxide 19 mmol/L (22-30); Chloride 110 mmol/L (98-107); Glucose 116 mg/dL (74-99); Non-African American GFR(MDRD) >60 (>60 ml/min/1.73 sqM); Sodium 142 mmol/L (137-145)
[2016-05-15 14:27] LABS: Blood Urea Nitrogen 12 mg/dL (7-17); Potassium 5.1 mmol/L (3.5-5.1)
--- NOTE | 2016-05-15 17:20 | P.PN ---
Subjective Date of service 05/14/2016. Progress note being dictated for Dr. Kwna. Interval history: This is an 85-year-old female admitted with left lower extremity deep ulcer, nonhealing with necrotic skin and multiple other medical issues. Maintained on Fortaz, vancomycin and Flagyl as per infectious disease.. Local wound care with Santyl. Awaiting surgical procedure- amputation. Potassium 5.2, Cozaar dose decreased. Hemoglobin 9.8, INR 1.2 .Denies chest pain, palpitations or increasing shortness of breath. Objective - Vital Signs Vital signs: Vital Signs Temp 98.3 F 05/14/16 07:00 Pulse 65 05/14/16 07:00 Resp 20 05/14/16 07:00 BP 156/85 05/14/16 07:00 Pulse Ox 96 05/14/16 07:00 Intake & Output 05/13/16 05/14/16 05/14/16 18:59 06:59 18:59 Intake Total 800 200 Balance 800 200 Weight 113.398 kg Intake: Oral 800 200 Other: Voiding Method Diaper Diaper Diaper Incontinent Incontinent Incontinent # Voids 1 1 - Exam PHYSICAL EXAM: VITAL SIGNS: As above GENERAL: [Sitting up in bed, no acute distress] HEENT: [Pupils equal conjunctiva normal.] NECK: [Supple, no JVD] RESPIRATORY EFFORT:[Normal] LUNGS: [Diminished, no rhonchi, no crackles, no wheezing] CARDIOVASCULAR[regular S1 and S2, positive systolic murmur] GI: [Abdomen soft, nontender, positive bowel sounds.] PSYCH: [Alert and oriented -1, pleasantly confused] SKIN: Left lower extremity dressing clean dry and intact - Labs CBC & Chem 7: 05/14/16 06:30 05/15/16 13:16 Labs: Abnormal Lab Results - Last 24 Hours (Table) 05/13/16 05/13/16 05/14/16 Range/Units 16:49 20:57 06:30 RBC 3.15 L (3.80-5.40) m/uL Hgb 9.8 L (11.4-16.0) gm/dL Hct 32.0 L (34.0-46.0) % MCV 101.8 H (80.0-100.0) fL MCHC 30.6 L (31.0-37.0) g/dL PT (9.0-12.0) sec POC Glucose (mg/dL) 69 L 109 H (75-99) mg/dL 05/14/16 05/14/16 Range/Units 07:19 11:54 RBC (3.80-5.40) m/uL Hgb (11.4-16.0) gm/dL Hct (34.0-46.0) % MCV (80.0-100.0) fL MCHC (31.0-37.0) g/dL PT 12.3 H (9.0-12.0) sec POC Glucose (mg/dL) 70 L (75-99) mg/dL Microbiology - Last 24 Hours (Table) 05/12/16 15:00 Gram Stain - Preliminary Leg - Left Wound Culture - Preliminary Gram Neg Bacilli Assessment and Plan Plan: 1 significant left lower x-ray cellulitis/concern for osteoarthritis, wound culture reporting gram-positive cocci, multiple morphologies and gram-negative bacilli #2 advanced dementia #3 hypothyroidism #4 history of hypertension #5 dyslipidemia #6 history of hypertension #7 peripheral neuropathy Plan: Continue on current medication regime , antibiotics, monitoring and symptomatic treatment. Antibiotics as per infectious disease. Awaiting amputation today with vascular surgery. Prognosis guarded given multiple complex medical issues. Maintained supportive care. The impression and plan of care has been dictated as directed. : I performed a H&P examination of this patient and discussed the same with the dictator. I agree with the dictator's note. Any additional findings/opinions/ etc. will be noted.
[2016-05-15 17:22] LABS: Glucose,Whole Blood 119 mg/dL (75-99)
[2016-05-15] MEDS: metroNIDAZOLE 500 MG TAB PO SCH ×2 (17:22→21:26)
--- NOTE | 2016-05-15 17:32 | P.PN ---
Subjective Date of service 05/15/2016. Progress note being dictated for Dr. Kwan. Interval history: This is an 85-year-old female admitted with left lower extremity deep ulcer, nonhealing with necrotic gangrenous skin, status post left AKA and multiple other medical issues. Underwent amputation yesterday, tolerated procedure well. Sleepy, sedated from Dilaudid IV push.Maintained on Rocephin, vancomycin and Flagyl as per infectious disease. Wound cultures now reporting Proteus Mirabellis. Denies chest pain, palpitations or increasing shortness of breath. Objective - Vital Signs Vital signs: Vital Signs Temp 97.2 F L 05/15/16 15:00 Pulse 55 L 05/15/16 15:00 Resp 16 05/15/16 15:00 BP 144/67 05/15/16 15:00 Pulse Ox 100 05/15/16 15:00 Intake & Output 05/14/16 05/15/16 05/15/16 18:59 06:59 18:59 Intake Total 700 650 Output Total 1500 1 Balance 700 -850 -1 Weight 113.398 kg Intake: IV 700 150 Oral 500 Output: Urine 1250 Stool 1 Estimated Blood Loss 250 Other: Voiding Method Diaper Indwelling Catheter Incontinent # Voids 1 - Exam PHYSICAL EXAM: VITAL SIGNS: As above GENERAL: [Sitting up in bed, no acute distress, sedated] HEENT: [Pupils equal conjunctiva normal.] NECK: [Supple, no JVD] RESPIRATORY EFFORT:[Normal] LUNGS: [Diminished, no rhonchi, no crackles, no wheezing] CARDIOVASCULAR[regular S1 and S2, positive systolic murmur] GI: [Abdomen soft, nontender, positive bowel sounds.] PSYCH: [Alert and oriented -1, pleasantly confused] SKIN: Left AKA dressing clean dry and intact - Labs CBC & Chem 7: 05/14/16 06:30 05/15/16 13:16 Labs: Abnormal Lab Results - Last 24 Hours (Table) 05/15/16 05/15/16 05/15/16 Range/Units 07:32 12:33 13:16 Chloride 110 H (98-107) mmol/L Carbon Dioxide 19 L (22-30) mmol/L Glucose 116 H (74-99) mg/dL POC Glucose (mg/dL) 116 H 107 H (75-99) mg/dL Microbiology - Last 24 Hours (Table) 05/12/16 15:00 Gram Stain - Final Leg - Left Wound Culture - Final Proteus mirabilis Assessment and Plan Plan: 1 significant left lower x-ray cellulitis/concern for osteoarthritis, gangrene; wound culture reporting Proteus Mirabilis, status post left AKA #2 advanced dementia #3 hypothyroidism #4 history of hypertension #5 dyslipidemia #6 history of hypertension #7 peripheral neuropathy Plan: Continue on current medication regime , antibiotics, monitoring and symptomatic treatment. Antibiotics as per infectious disease. Patient sedated on Dilaudid IV push, discontinued, Toradol added to med regime. GI prophylaxis with Protonix .DVT prophylaxis with Lovenox.Prognosis guarded given multiple complex medical issues. Maintain supportive care. Discharge planning in progress pending clearance, DC recommendations from both ID and surgery. The impression and plan of care has been dictated as directed. : I performed a H&P examination of this patient and discussed the same with the dictator. I agree with the dictator's note. Any additional findings/opinions/ etc. will be noted.
[2016-05-15 21:34] LABS: Glucose,Whole Blood 117 mg/dL (75-99)
--- NOTE | 2016-05-15 23:25 | PN ---
DATE OF SERVICE: 05/15/2016 REASON FOR FOLLOWUP: Left leg wound. INTERVAL HISTORY: The patient is afebrile. The patient is status post left [id number] amputation done by Dr. De Leon. Patient has a non-healing wound to the left leg area. Patient seems to be slightly awake and alert. Pain is currently controlled. No nausea, vomiting or any diarrhea. On examination, blood pressure is 144/67 with a pulse of 55, temperature 97.2. She is 100% on room air. General description is an elderly female lying in bed in no distress. RESPIRATORY SYSTEM: Unlabored breathing. Clear to auscultation anteriorly. HEART: S1, S2. Regular rate and rhythm. ABDOMEN: Soft. No tenderness. Left AKA wound is currently dressed up. No obvious drainage on the dressing. LABS: BUN of 12, creatinine 0.79. Wound culture showing Proteus mirabilis. That is a sensitive pathogen. DIAGNOSTIC IMPRESSION AND PLAN: Patient with left leg non-healing wound. Culture has been positive for proteus, status post [id number] amputation. As the infected part has been removed, the patient will not need to be on long-term antibiotic therapy. Patient to continue vancomycin. I will discontinue Fortaz and switch her over to Rocephin. Continue supportive care.
[2016-05-16] MEDS: LEVOTHYROXINE 125 MCG TAB PO SCH (06:25)
[2016-05-16 07:38] LABS: Glucose,Whole Blood 105 mg/dL (75-99)
[2016-05-16 08:36] LABS: Anion Gap 10 mmol/L; Blood Urea Nitrogen 9 mg/dL (7-17); Calcium 7.8 mg/dL (8.4-10.2); Carbon Dioxide 21 mmol/L (22-30); Chloride 110 mmol/L (98-107); Glucose 105 mg/dL (74-99); Non-African American GFR(MDRD) >60 (>60 ml/min/1.73 sqM); Potassium 4.1 mmol/L (3.5-5.1); Sodium 141 mmol/L (137-145)
[2016-05-16] MEDS: VANCOMYCIN 1,500 MG in SODIUM CHLORIDE 0.9% 250 ML IVPB SCH (08:51)
[2016-05-16] MEDS: GABAPENTIN 300 MG CAP PO SCH ×3 (08:56→21:06)
[2016-05-16] MEDS: POTASSIUM CHLORIDE ER 20 MEQ TAB.ER PO SCH ×2 (08:56→21:06)
[2016-05-16] MEDS: ENOXAPARIN 40 MG/0.4 ML SYRINGE SQ SCH (08:56)
[2016-05-16] MEDS: levETIRAcetam 500 MG TAB PO SCH ×2 (08:56→21:06)
[2016-05-16] MEDS: PANTOPRAZOLE 40 MG TABLET PO SCH (08:56)
[2016-05-16] MEDS: LOSARTAN 50 MG TAB PO SCH (08:56)
[2016-05-16] MEDS: MAGNESIUM OXIDE 250 MG TAB PO SCH (08:57)
[2016-05-16] MEDS: METOPROLOL TARTRATE 50 MG TAB PO SCH ×2 (08:57→21:06)
[2016-05-16] MEDS: ASPIRIN 81 MG CHEW PO SCH (08:57)
[2016-05-16] MEDS: metroNIDAZOLE 500 MG TAB PO SCH ×3 (08:57→21:06)
[2016-05-16] MEDS: DONEPEZIL 10 MG TAB PO SCH (08:57)
--- NOTE | 2016-05-16 09:19 | P.PN ---
Progress Note - Text 85-year-old white female, patient has history of dementia, history of peripheral vascular disease, patient had a left above-knee amputation her water signs are stable dressing is dry and intact continue with IV antibiotic we will arrange for physical therapy
[2016-05-16] MEDS: COLLAGENASE 250 UNIT/GM OINTMENT 30 GM TUBE TOPICAL SCH (10:27)
[2016-05-16] MEDS: cefTRIAXone 2,000 MG in SODIUM CHLORIDE 0.9% 100 ML IVPB SCH (11:28)
[2016-05-16 11:38] LABS: Glucose,Whole Blood 138 mg/dL (75-99)
[2016-05-16] MEDS: KETOROLAC 30 MG/ML 1 ML VIAL IVP PRN (16:55)
[2016-05-16 17:20] LABS: Glucose,Whole Blood 125 mg/dL (75-99)
[2016-05-16] MEDS: SODIUM CHLORIDE 0.9% 1,000 ML IV SCH (17:34)
[2016-05-16 21:32] LABS: Glucose,Whole Blood 129 mg/dL (75-99)
[2016-05-17] MEDS: LEVOTHYROXINE 125 MCG TAB PO SCH (06:18)
[2016-05-17 07:18] LABS: Glucose,Whole Blood 91 mg/dL (75-99)
[2016-05-17] MEDS: MAGNESIUM OXIDE 250 MG TAB PO SCH (08:13)
[2016-05-17] MEDS: levETIRAcetam 500 MG TAB PO SCH ×2 (08:14→20:55)
[2016-05-17] MEDS: GABAPENTIN 300 MG CAP PO SCH ×3 (08:14→20:55)
[2016-05-17] MEDS: LOSARTAN 50 MG TAB PO SCH (08:14)
[2016-05-17] MEDS: metroNIDAZOLE 500 MG TAB PO SCH (08:14)
[2016-05-17] MEDS: ASPIRIN 81 MG CHEW PO SCH (08:14)
[2016-05-17] MEDS: POTASSIUM CHLORIDE ER 20 MEQ TAB.ER PO SCH ×2 (08:14→20:55)
[2016-05-17] MEDS: PANTOPRAZOLE 40 MG TABLET PO SCH (08:14)
[2016-05-17] MEDS: DONEPEZIL 10 MG TAB PO SCH (08:14)
[2016-05-17] MEDS: ENOXAPARIN 40 MG/0.4 ML SYRINGE SQ SCH (08:14)
[2016-05-17] MEDS: METOPROLOL TARTRATE 50 MG TAB PO SCH ×2 (08:14→20:55)
[2016-05-17] MEDS: VANCOMYCIN 1,500 MG in SODIUM CHLORIDE 0.9% 250 ML IVPB SCH (08:15)
--- NOTE | 2016-05-17 09:31 | PN ---
DATE OF SERVICE: 05/16/2016 Reason for followup is left leg wound. INTERVAL HISTORY: The patient is afebrile. Has been breathing comfortably. Denies having any chest pain, cough. No abdominal pain. On examination, blood pressure 126/80 with a pulse of 106, temperature 98.4. She is 93% on room air. General description is an elderly female lying in bed in no distress. RESPIRATORY SYSTEM: Unlabored breathing. Clear to auscultation anteriorly. HEART: S1, S2. Regular rate and rhythm. Left AKA wound is currently dressed and no obvious drainage. LABS: BUN of 9, creatinine 0.75. DIAGNOSTIC IMPRESSION AND PLAN: Patient with left leg wound with Proteus mirabilis and anaerobic gram negative, status post [id number] amputation. As the infected part has been removed, the patient does not need to be on any long-term antibiotic therapy. She will continue on the Rocephin and Flagyl. Discontinue the Vanco as no gram positive has been grown. Continue supportive care. [facility]
[2016-05-17] MEDS: ACETAMINOPHEN TAB 325 MG TAB PO PRN (10:11)
[2016-05-17 10:20] LABS: Basophils % (A) 0 %; CH 30.9; CHCM 30.7; Eosinophils # (A) 0.2 k/uL (0-0.7); Eosinophils % (A) 2 %; HCT 27.8 % (34.0-46.0); HDW 2.46; HGB 8.7 gm/dL (11.4-16.0); Hypochromasia Slight; Luc % (Auto) 3; Lymphocytes # (A) 1.2 k/uL (1.0-4.8); Lymphocytes % (A) 16 %; MCH 31.5 pg (25.0-35.0); MCHC 31.1 g/dL (31.0-37.0); MCV 101.2 fL (80.0-100.0); Macrocytosis Slight; Monocytes # (A) 0.6 k/uL (0-1.0); Monocytes % (A) 8 %; Neutrophils # (A) 5.5 k/uL (1.3-7.7); Neutrophils % (A) 71 %; RBC 2.75 m/uL (3.80-5.40); RDW 13.8 % (11.5-15.5); WBC 7.7 k/uL (3.8-10.6); WBC (Perox) 8.62
[2016-05-17 10:43] LABS: Anion Gap 8 mmol/L; Blood Urea Nitrogen 10 mg/dL (7-17); Calcium 7.7 mg/dL (8.4-10.2); Carbon Dioxide 21 mmol/L (22-30); Chloride 108 mmol/L (98-107); Glucose 107 mg/dL (74-99); Non-African American GFR(MDRD) >60 (>60 ml/min/1.73 sqM); Potassium 4.3 mmol/L (3.5-5.1); Sodium 137 mmol/L (137-145)
[2016-05-17] MEDS: cefTRIAXone 2,000 MG in SODIUM CHLORIDE 0.9% 100 ML IVPB SCH (11:27)
--- NOTE | 2016-05-17 11:38 | P.PN ---
Subjective Date of service 05/16/2016. Progress note being dictated for Dr. Kwan. Interval history: This is an 85-year-old female admitted with left lower extremity deep ulcer, nonhealing with necrotic gangrenous skin, status post left AKA and multiple other medical issues. Maintained on Rocephin, vancomycin and Flagyl as per infectious disease. Wound cultures now reporting Proteus Mirabellis. Pain controlled. Much more alert today. Excoriated autumn-area with barrier cream maintained as well as Farnsworth catheter. Denies chest pain, palpitations or increasing shortness of breath. Objective - Vital Signs Vital signs: Vital Signs Temp 98.4 F 05/16/16 15:00 Pulse 106 H 05/16/16 15:00 Resp 16 05/16/16 15:00 BP 126/80 05/16/16 15:00 Pulse Ox 93 L 05/16/16 15:00 Intake & Output 05/15/16 05/16/16 05/16/16 18:59 06:59 18:59 Intake Total 350 Output Total 503 550 Balance -503 -550 350 Intake: Intake, IV Titration 350 Amount Vancomycin 1,500 mg In 250 Sodium Chloride 0.9% 250 ml @ 125 mls/hr IVPB Q24H [facility] Rx#:[id number] cefTRIAXone 2,000 mg In 100 Sodium Chloride 0.9% 100 ml @ 100 mls/hr IVPB Q24HR [facility] Rx#:[id number] Output: Urine 500 550 Stool 3 Other: Voiding Method Indwelling Catheter Indwelling Catheter Indwelling Catheter - Exam PHYSICAL EXAM: VITAL SIGNS: As above GENERAL: [Sitting up in bed, no acute distress, sedated] HEENT: [Pupils equal conjunctiva normal.] NECK: [Supple, no JVD] RESPIRATORY EFFORT:[Normal] LUNGS: [Diminished, no rhonchi, no crackles, no wheezing] CARDIOVASCULAR[regular S1 and S2, positive systolic murmur] GI: [Abdomen soft, nontender, positive bowel sounds.] PSYCH: [Alert and oriented -1, pleasantly confused] SKIN: Excoriated autumn-area with barrier cream,Left AKA dressing clean dry and intact, right heel wound with Santyl dressing clean dry and intact. - Labs CBC & Chem 7: 05/17/16 09:54 05/17/16 09:54 Labs: Abnormal Lab Results - Last 24 Hours (Table) 05/15/16 05/15/16 05/16/16 Range/Units 17:15 21:20 07:30 Chloride (98-107) mmol/L Carbon Dioxide (22-30) mmol/L Glucose (74-99) mg/dL POC Glucose (mg/dL) 119 H 117 H 105 H (75-99) mg/dL Calcium (8.4-10.2) mg/dL 05/16/16 05/16/16 Range/Units 07:57 11:35 Chloride 110 H (98-107) mmol/L Carbon Dioxide 21 L (22-30) mmol/L Glucose 105 H (74-99) mg/dL POC Glucose (mg/dL) 138 H (75-99) mg/dL Calcium 7.8 L (8.4-10.2) mg/dL Assessment and Plan Plan: 1 significant left lower x-ray cellulitis/concern for osteoarthritis, gangrene; wound culture reporting Proteus Mirabilis, status post left AKA. Right heel wound with Santyl dressing. Maintaining Farnsworth catheter for Excoriated autumn- area along with barrier cream. #2 advanced dementia #3 hypothyroidism #4 history of hypertension #5 dyslipidemia #6 history of hypertension #7 peripheral neuropathy Plan: Continue on current medication regime , antibiotics, monitoring and symptomatic treatment. Antibiotics continue as per infectious disease. Pain controlled, Maintained pain management. GI and DVT prophylaxis in place. Discussed with vascular surgery, cleared for discharge tomorrow .Prognosis guarded given multiple complex medical issues. Maintain supportive care. Discharge planning in progress for tomorrow to [facility] pending clearance/ recommendations from ID. The impression and plan of care has been dictated as directed. : I performed a H&P examination of this patient and discussed the same with the dictator. I agree with the dictator's note. Any additional findings/opinions/ etc. will be noted.
--- NOTE | 2016-05-17 11:55 | CDI ---
In responding to this query, please exercise your independent professional judgment. The [facility] Coding Staff and Clinical Documentation Specialists appreciate your assistance in clarifying documentation, maintaining compliance with coding guidelines, accurately documenting patients condition and capturing severity of illness. The fact that a question is asked does not imply that any particular answer is desired or expected. Communication forms are a method of clarifying documentation and are not made part of the Legal Health Record. Thank you in advance for your clarification. Last Revision, March 2015 Alvino Monterroso [address] [place] [address] Documentation Clarification Form Date: 05/17/2016 11:45:00 AM From: Raeann John CCS, CCDS Admit Date: 05/11/2016 3:08:00 PM Patient Name: Sarah Mukherjee Visit Number: [id number] Discharge Date: Dr. Fabrizio De Leon: On 05/16, the patient underwent a left AKA for a gangrenous left lower extremity ulcer. Patient history/risk factors: COPD, Stroke w/left sided weakness, Dementia, DM II, GERD, Hyperlipidemia, Hypertension, Seizure disorder. Clinical Indicators: Status post left above knee amputation. Treatment: IV Vanco, IV Rocephin, IV Toradol, po Flagyl, po Lasix, postop wound care. In your professional opinion, can you please clarify the location of the patient 's amputation: Amputation: (Definition): HIGH: Amputation at the proximal portion of the shaft of the tibia/fibula or radius/ulna. LOW: Amputation at the distal portion of the shaft of the tibia/fibula or radius/ulna. MID: Amputation at the middle portion of the shaft of the tibia/fibula or radius/ulna. Other Unable to determine Please document in your progress notes and discharge summary in order to capture severity of illness and risk of mortality. Include clinical findings that support your diagnosis. FYI: Press F11 to launch patient chart. Place X here if this finding has no clinical significance, is not applicable or if you are not able to provide any additional documentation. Thank You. MIKE
[2016-05-17 12:05] LABS: Glucose,Whole Blood 98 mg/dL (75-99)
[2016-05-17] MEDS: SODIUM CHLORIDE 0.9% 1,000 ML IV SCH (13:17)
[2016-05-17] MEDS: COLLAGENASE 250 UNIT/GM OINTMENT 30 GM TUBE TOPICAL SCH (13:36)
--- NOTE | 2016-05-17 14:03 | DS ---
DATE OF ADMISSION: 05/11/2016 DATE OF DISCHARGE: FINAL DIAGNOSES: 1. Left lower extremity cellulitis with osteoarthritis and gangrene. Wound culture report and Proteus mirabilis, status post left above knee amputation. 2. Right heel with Santyl dressing. 3. Farnsworth catheter for excoriative area along with cream. 4. Advanced dementia. 5. Hypothyroidism. 6. History of hypertension. 7. Gait dysfunction. 8. Hyperlipidemia. 9. History of hypertension. 10. Peripheral neuropathy. 11. Change in mental status, metabolic encephalopathy, acute on chronic. 12. Anemia, macrocytic, possibly nutritional 13. NO CODE, NO CPR, NO VENT. DISCHARGE DISPOSITION: The patient transferred in stable condition with guarded prognosis to [facility] under Dr. Stevenson. Total time taken 35 minutes. HISTORY OF PRESENT ILLNESS: This 85-year-old woman with past medical history of multiple medical problems was admitted with significant ulceration and gangrene. The patient underwent patient was seen by Dr. Howell as well as Dr. De Leon. The patient underwent amputation as mentioned earlier. The patient was treated symptomatically. Patient improved significantly. Cultures are growing aerobic gram-negative bacilli and proteus mirabilis. On exam, vitals are stable. Patient is confused. CARDIOVASCULAR: S1, S2 muffled. Respiratory: A few scattered rhonchi. Legs as mentioned earlier. Labs with hemoglobin was 8.7 and MCV 101.2. The patient improved significantly. DISCHARGE ADVICE AND MEDICATIONS: 1. Diet is cardiac. 2. Activity limited until follow up. 3. Follow-up with Dr. Stevenson in 2 to 3 days. 4. CBC, BMP. 5. Follow-up with Dr. Casey as advised. 6. Follow-up with Dr. Howell and Dr. De Leon as recommended. 7. Tylenol 650 q.6 p.r.n. 8. Ecotrin 81 mg p.o. daily. 9. Santyl local application as before. 10. Aricept 10 mg daily. 11. Wound care and wound dressing and management by Dr. De Leon. 12. Lasix 20 mg Friday, Friday, Friday. 13. Neurontin 300 mg p.o. t.i.d. 14. Humalog scale so that 150 to 200 = 2 units, 200 to 250 4 units, 250 to 300 6 units, 300 to 350 8 units, 350 to 400 10 unites, more than 400 call. 15. Synthroid 125 mcg p.o. daily. 16. Cozaar 50 mg p.o. daily. 17. Slow-Mag 64 mg p.o. daily. 18. Lopressor 50 mg p.o. b.i.d. 19. Protonix 40 mg daily. 20. K-Dur 20 meq p.o. b.i.d. 21. Keppra 500 mg p.o. b.i.d. Once again, the patient will be discharged in a stable condition with guarded prognosis. MTDD
--- NOTE | 2016-05-17 14:21 | PN ---
DATE OF SERVICE: 05/17/2016 Reason for follow-up: 1. Left leg wound. 2. Right heel wound. INTERVAL HISTORY: The patient is afebrile. She has been breathing comfortably. Denies any chest pain or shortness of breath. No cough or abdominal pain. No pain in the leg area. On examination, blood pressure is 142/63 with a pulse of 54, temperature 97.3, she is 98% on room air. General description is an elderly female lying in bed in no distress. RESPIRATORY SYSTEM: Unlabored breathing. Clear to auscultation anteriorly. HEART: S1, S2 with regular rate and rhythm. ABDOMEN: Soft, no tenderness. Left AK wound currently dressed with no obvious drainage. Right heel did have a Stage I with small callus that was removed but no skin breakdown. LABS: Wound culture with Proteus and anaerobic. Diagnostic impression and plan: 1. Patient with left leg wound, infected part has been removed. The patient will not need for any outpatient IV antibiotic therapy. Recommend short course of p.o. Keflex 500 mg daily for about a week. 2. Right heel wound will apply heel protector to prevent any worsening. MTDD
[2016-05-17 17:19] LABS: Glucose,Whole Blood 112 mg/dL (75-99)
[2016-05-17] MEDS: CEPHALEXIN 500 MG CAP PO SCH ×2 (18:23→20:55)
[2016-05-17 21:15] LABS: Glucose,Whole Blood 96 mg/dL (75-99)
[2016-05-18] MEDS: LEVOTHYROXINE 125 MCG TAB PO SCH (06:06)
[2016-05-18 07:45] LABS: Glucose,Whole Blood 88 mg/dL (75-99)
--- NOTE | 2016-05-18 08:06 | P.PN ---
Progress Note - Text 85-year-old white female, patient had a left above-knee amputation her dressing is intact and stump site is healing good we are waiting for seeing him placement we will change her dressing today if patient goes home with follow-up in the office for removal of stitches
[2016-05-18] MEDS: MAGNESIUM OXIDE 250 MG TAB PO SCH (08:08)
[2016-05-18] MEDS: CEPHALEXIN 500 MG CAP PO SCH ×3 (08:09→21:20)
[2016-05-18] MEDS: ASPIRIN 81 MG CHEW PO SCH (08:10)
[2016-05-18] MEDS: POTASSIUM CHLORIDE ER 20 MEQ TAB.ER PO SCH ×2 (08:10→21:20)
[2016-05-18] MEDS: METOPROLOL TARTRATE 50 MG TAB PO SCH ×2 (08:12→21:19)
[2016-05-18] MEDS: ENOXAPARIN 40 MG/0.4 ML SYRINGE SQ SCH (08:13)
[2016-05-18] MEDS: levETIRAcetam 500 MG TAB PO SCH ×2 (08:13→21:20)
[2016-05-18] MEDS: LOSARTAN 50 MG TAB PO SCH (08:13)
[2016-05-18] MEDS: DONEPEZIL 10 MG TAB PO SCH (08:14)
[2016-05-18] MEDS: GABAPENTIN 300 MG CAP PO SCH ×3 (08:15→21:20)
[2016-05-18] MEDS: SODIUM CHLORIDE 0.9% 1,000 ML IV SCH (08:15)
[2016-05-18] MEDS: PANTOPRAZOLE 40 MG TABLET PO SCH (08:15)
[2016-05-18] MEDS: KETOROLAC 30 MG/ML 1 ML VIAL IVP PRN (11:39)
[2016-05-18 12:10] LABS: Glucose,Whole Blood 87 mg/dL (75-99)
--- NOTE | 2016-05-18 16:49 | P.PN ---
Addendum entered and electronically signed by Shikha Fabian NPC 05/20/16 19: 47: Clarification: Progress note being dictated for Dr. Norris. Addendum entered and electronically signed by Shikha Fabian NPC 05/18/16 16: 49: Clarification under physical exam, vital signs: 97.9 Fahrenheit, heart rate 71, respiratory rate 18, blood pressure 139/66, O2 sat 100% on room air. Original Note: Subjective Date of service 05/17/2016. Progress note being dictated for Dr. Kwan. Interval history: This is an 85-year-old female admitted with left lower extremity deep ulcer, nonhealing with necrotic gangrenous skin, status post left AKA and multiple other medical issues. Maintained on Rocephin, vancomycin and Flagyl as per infectious disease. Pain controlled. Alert, diet intake improved. Denies stump pain. Denies cough. Denies chest pain, palpitations or increasing shortness of breath. Afebrile. Objective - Vital Signs Vital signs: Vital Signs Temp 97.2 F L 05/18/16 15:00 Pulse 52 L 05/18/16 16:29 Resp 20 05/18/16 16:29 BP 137/51 05/18/16 15:00 Pulse Ox 100 05/18/16 15:00 Intake & Output 05/17/16 05/18/16 05/18/16 18:59 06:59 18:59 Intake Total 100 400 Output Total 400 1850 1601 Balance -400 -1750 -1201 Intake: Intake, IV Titration 400 Amount Sodium Chloride 0.9% 1, 400 000 ml @ 50 mls/hr IV . Q20H [facility] Rx#:[id number] Oral 100 0 Output: Urine 400 1850 1600 Uretheral (Farnsworth) 700 800 Stool 1 Other: Voiding Method Indwelling Catheter Indwelling Catheter Indwelling Catheter # Voids 1 # Bowel Movements 2 1 1 - Exam PHYSICAL EXAM: VITAL SIGNS: As above GENERAL: [Sitting up in bed, no acute distress, sedated] HEENT: [Pupils equal conjunctiva normal.] NECK: [Supple, no JVD] RESPIRATORY EFFORT:[Normal] LUNGS: [Diminished, no rhonchi, no crackles, no wheezing] CARDIOVASCULAR[regular S1 and S2, positive systolic murmur] GI: [Abdomen soft, nontender, positive bowel sounds.] PSYCH: [Alert and oriented -1, pleasantly confused] SKIN: Excoriated autumn-area with barrier cream,Left AKA dressing clean dry and intact, right heel wound with Santyl dressing clean dry and intact. Microbiology 05/12/16 15:00 Leg - Left Anaerobic Culture - Final Anaerobic Gm Negative Bacilli 05/12/16 15:00 Leg - Left Gram Stain - Final 05/12/16 15:00 Leg - Left Wound Culture - Final Proteus mirabilis - Labs CBC & Chem 7: 05/17/16 09:54 05/17/16 09:54 Labs: Abnormal Lab Results - Last 24 Hours (Table) 05/17/16 Range/Units 17:17 POC Glucose (mg/dL) 112 H (75-99) mg/dL Assessment and Plan Plan: 1 significant left lower x-ray cellulitis/concern for osteoarthritis, gangrene; wound culture reporting Proteus Mirabilis, status post left AKA. Right heel wound stage I. Maintaining Farnsworth catheter for Excoriated autumn-area along with barrier cream. #2 advanced dementia #3 hypothyroidism #4 history of hypertension #5 dyslipidemia #6 history of hypertension #7 peripheral neuropathy Plan: Continue on current medication regime , antibiotics, monitoring and symptomatic treatment. Antibiotics continue as per infectious disease. GI and DVT prophylaxis in place. Discharge planning in progress for ECF, pre- auth pending. Maintain supportive care. The impression and plan of care has been dictated as directed. : I performed a H&P examination of this patient and discussed the same with the dictator. I agree with the dictator's note. Any additional findings/opinions/ etc. will be noted.
--- NOTE | 2016-05-18 16:53 | P.PN ---
Addendum entered and electronically signed by Shikha Fabian NPC 05/20/16 19: 47: Clarification: Progress note being dictated for Dr. Norris Original Note: Subjective Date of service 05/18/2016. Progress note being dictated for Dr. Kwan. Interval history: This is an 85-year-old female admitted with left lower extremity deep ulcer, nonhealing with necrotic gangrenous skin, status post left AKA and multiple other medical issues. Maintained on as per infectious disease. Pain controlled. Alert, diet intake improved. Denies stump pain. Denies chest pain, palpitations or increasing shortness of breath. Afebrile. Awaiting pre- authorization for ECF rehab. Objective - Vital Signs Vital signs: Vital Signs Temp 97.2 F L 05/18/16 15:00 Pulse 52 L 05/18/16 16:29 Resp 20 05/18/16 16:29 BP 137/51 05/18/16 15:00 Pulse Ox 100 05/18/16 15:00 Intake & Output 05/17/16 05/18/16 05/18/16 18:59 06:59 18:59 Intake Total 100 400 Output Total 400 1850 1601 Balance -400 -1750 -1201 Intake: Intake, IV Titration 400 Amount Sodium Chloride 0.9% 1, 400 000 ml @ 50 mls/hr IV . Q20H [facility] Rx#:[id number] Oral 100 0 Output: Urine 400 1850 1600 Uretheral (Farnsworth) 700 800 Stool 1 Other: Voiding Method Indwelling Catheter Indwelling Catheter Indwelling Catheter # Voids 1 # Bowel Movements 2 1 1 - Labs CBC & Chem 7: 05/17/16 09:54 05/17/16 09:54 Labs: Abnormal Lab Results - Last 24 Hours (Table) 05/17/16 Range/Units 17:17 POC Glucose (mg/dL) 112 H (75-99) mg/dL Assessment and Plan Plan: 1 significant left lower x-ray cellulitis/concern for osteoarthritis, gangrene; wound culture reporting Proteus Mirabilis, status post left AKA. Right heel wound stage I. Maintaining Farnsworth catheter for Excoriated autumn-area along with barrier cream. #2 advanced dementia #3 hypothyroidism #4 history of hypertension #5 dyslipidemia #6 history of hypertension #7 peripheral neuropathy Plan: Continue on current medication regime , antibiotics, monitoring and symptomatic treatment. Antibiotics continue as per infectious disease. GI and DVT prophylaxis in place. Discharge planning in progress for ECF, pre- auth pending. Maintain supportive care. Santyl cream has been discontinued from right heel, heel protectors recommended. The impression and plan of care has been dictated as directed. : I performed a H&P examination of this patient and discussed the same with the dictator. I agree with the dictator's note. Any additional findings/opinions/ etc. will be noted.
[2016-05-18 17:21] LABS: Glucose,Whole Blood 83 mg/dL (75-99)
--- NOTE | 2016-05-18 19:37 | PN ---
DATE OF SERVICE: 05/07/2016 This 85-year-old woman was admitted with significant lower extremity cellulitis, also had above-knee amputation. I have seen and evaluated the patient with the nurse practitioner. Please refer to the nurse practitioner's notes and impressions documented as scribe for further information. Guarded prognosis. Possible ECF rehab.
--- NOTE | 2016-05-18 20:11 | PN ---
DATE OF SERVICE: 05/18/2016 This 85 -year-old woman was admitted to the hospital and cellulitis also had above knee amputation. Seen and evaluated the patient along with nurse practitioner. Please refer to the nurse practitioner notes and impression documented as a scribe for further information. Prognosis guarded. MTDD
[2016-05-18] MEDS: ALPRAZolam 0.25 MG TAB PO PRN (21:20)
[2016-05-18 21:30] LABS: Glucose,Whole Blood 112 mg/dL (75-99)
[2016-05-19] MEDS: SODIUM CHLORIDE 0.9% 1,000 ML IV SCH ×2 (05:53→08:33)
[2016-05-19] MEDS: LEVOTHYROXINE 125 MCG TAB PO SCH (06:20)
[2016-05-19 07:32] LABS: Glucose,Whole Blood 82 mg/dL (75-99)
[2016-05-19] MEDS: POTASSIUM CHLORIDE ER 20 MEQ TAB.ER PO SCH ×2 (08:31→20:47)
[2016-05-19] MEDS: ENOXAPARIN 40 MG/0.4 ML SYRINGE SQ SCH (08:31)
[2016-05-19] MEDS: levETIRAcetam 500 MG TAB PO SCH ×2 (08:32→20:47)
[2016-05-19] MEDS: GABAPENTIN 300 MG CAP PO SCH ×3 (08:32→20:48)
[2016-05-19] MEDS: METOPROLOL TARTRATE 50 MG TAB PO SCH ×2 (08:32→20:47)
[2016-05-19] MEDS: ASPIRIN 81 MG CHEW PO SCH (08:32)
[2016-05-19] MEDS: CEPHALEXIN 500 MG CAP PO SCH ×3 (08:32→20:48)
[2016-05-19] MEDS: LOSARTAN 50 MG TAB PO SCH (08:32)
[2016-05-19] MEDS: PANTOPRAZOLE 40 MG TABLET PO SCH (08:32)
[2016-05-19] MEDS: MAGNESIUM OXIDE 250 MG TAB PO SCH (08:32)
[2016-05-19] MEDS: DONEPEZIL 10 MG TAB PO SCH (08:33)
[2016-05-19] MEDS: KETOROLAC 30 MG/ML 1 ML VIAL IVP PRN (09:01)
[2016-05-19] MEDS: ALPRAZolam 0.25 MG TAB PO PRN (09:01)
--- NOTE | 2016-05-19 11:17 | P.PN ---
Progress Note - Text 85-year-old white female, history of dementia, history of peripheral vascular disease, patient had a left above-knee amputation stump site is clean and healing dressing is dry patient is waiting to go to the group home I will follow up in my office in 2 weeks for removal of the stitches
[2016-05-19 12:23] LABS: Glucose,Whole Blood 76 mg/dL (75-99)
[2016-05-19 12:57] LABS: Glucose,Whole Blood 77 mg/dL (75-99)
[2016-05-19 16:59] LABS: Glucose,Whole Blood 79 mg/dL (75-99)
[2016-05-19] MEDS: ACETAMINOPHEN TAB 325 MG TAB PO PRN (20:48)
[2016-05-19 21:49] LABS: Glucose,Whole Blood 95 mg/dL (75-99)
[2016-05-20] MEDS: LEVOTHYROXINE 125 MCG TAB PO SCH (06:03)
[2016-05-20 06:51] LABS: Glucose,Whole Blood 87 mg/dL (75-99)
[2016-05-20] MEDS: LOSARTAN 50 MG TAB PO SCH (08:12)
[2016-05-20] MEDS: METOPROLOL TARTRATE 50 MG TAB PO SCH ×2 (08:12→21:09)
[2016-05-20] MEDS: ASPIRIN 81 MG CHEW PO SCH (08:12)
[2016-05-20] MEDS: levETIRAcetam 500 MG TAB PO SCH ×2 (08:12→21:10)
[2016-05-20] MEDS: CEPHALEXIN 500 MG CAP PO SCH ×3 (08:12→21:09)
[2016-05-20] MEDS: PANTOPRAZOLE 40 MG TABLET PO SCH (08:12)
[2016-05-20] MEDS: GABAPENTIN 300 MG CAP PO SCH ×3 (08:12→21:10)
[2016-05-20] MEDS: MAGNESIUM OXIDE 250 MG TAB PO SCH (08:12)
[2016-05-20] MEDS: POTASSIUM CHLORIDE ER 20 MEQ TAB.ER PO SCH ×2 (08:12→21:10)
[2016-05-20] MEDS: DONEPEZIL 10 MG TAB PO SCH (08:12)
[2016-05-20] MEDS: ENOXAPARIN 40 MG/0.4 ML SYRINGE SQ SCH (08:13)
[2016-05-20 12:04] LABS: Glucose,Whole Blood 107 mg/dL (75-99)
--- NOTE | 2016-05-20 14:53 | PN ---
DATE OF SERVICE: 05/19/2016 This 85-year-old woman who was admitted with significant lower extremity cellulitis is being closely monitored at this time. The wound cultures are showing Proteus mirabilis. No chest pain. No palpitations. No fever. ECF rehab is awaited. No fever. No cough. On exam, alert and oriented x2. Pulse 51, blood pressure 130/53, respiratory rate 16, temperature 97.9. pulse ox 97% on room air. HEENT: Conjunctivae normal. NECK: No jugular venous distention. CARDIOVASCULAR: S1, S2 muffled. RESPIRATORY: Breath sounds diminished at the bases. A few scattered rhonchi and crackles. ABDOMEN: Soft, nontender. LEGS: Cellulitis. Nervous system: No focal deficits. LABS: Hemoglobin 8.7. ASSESSMENT: 1. Acute left lower extremity cellulitis and gangrene with the wound culture showing Proteus mirabilis, status post left above knee amputation. 2. Right heel wound, stage I. 3. Farnsworth catheter for excoriation perineal. 4. Hypothyroidism. 5. History of hypertension. 6. Dyslipidemia. 7. History of peripheral neuropathy. RECOMMENDATIONS AND DISCUSSION: Recommend to continue the current medications, continue with monitoring, symptomatic treatment , continue with antibiotics. Otherwise, closely follow. Await ECF rehab. Further work-up and guarded prognosis. Further recommendations to follow.
[2016-05-20 17:12] LABS: Glucose,Whole Blood 109 mg/dL (75-99)
--- NOTE | 2016-05-20 18:06 | P.PN ---
Addendum entered and electronically signed by Shikha Fabian NPC 05/20/16 19: 46: Clarification: Progress note being dictated for Dr. Norris. Original Note: Subjective Date of service 05/20/16. Progress note being dictated for Dr. Kwan. Interval history: This is an 85-year-old female admitted with left lower extremity deep ulcer, nonhealing with necrotic gangrenous skin, status post left AKA and multiple other medical issues. Maintained on antibiotics as per infectious disease. Pain controlled. Consuming 75% of lunch. Denies chest pain, palpitations or increasing shortness of breath. Afebrile. Awaiting pre- authorization for ECF rehab. Objective - Vital Signs Vital signs: Vital Signs Temp 97.4 F L 05/20/16 07:00 Pulse 53 L 05/20/16 07:00 Resp 16 05/20/16 07:00 BP 135/61 05/20/16 07:00 Pulse Ox 98 05/20/16 07:00 Intake & Output 05/19/16 05/20/16 05/20/16 18:59 06:59 18:59 Intake Total 200 200 Output Total 1 950 Balance 199 -950 200 Intake: Oral 200 200 Output: Urine 950 Stool 1 Other: Voiding Method Indwelling Catheter Indwelling Catheter Indwelling Catheter # Bowel Movements 1 - Exam PHYSICAL EXAM: VITAL SIGNS: As above GENERAL: [Sitting up in bed, no acute distress, sedated] HEENT: [Pupils equal conjunctiva normal.] NECK: [Supple, no JVD] RESPIRATORY EFFORT:[Normal] LUNGS: [Diminished, no rhonchi, no crackles, no wheezing] CARDIOVASCULAR[regular S1 and S2, positive systolic murmur] GI: [Abdomen soft, nontender, positive bowel sounds.] PSYCH: [Alert and oriented -1, pleasantly confused] SKIN: Excoriated autumn-area with barrier cream,Left AKA dressing clean dry and intact, right heel wound with Santyl dressing clean dry and intact. 05/12/16 15:00 Leg - Left Anaerobic Culture - Final Anaerobic Gm Negative Bacilli 05/12/16 15:00 Leg - Left Gram Stain - Final 05/12/16 15:00 Leg - Left Wound Culture - Final Proteus mirabilis 1 - Labs CBC & Chem 7: 05/17/16 09:54 05/17/16 09:54 Assessment and Plan Plan: 1. Acute left lower x-ray cellulitis/concern for osteoarthritis, gangrene; wound culture reporting Proteus Mirabilis, status post left AKA. Right heel wound stage I. Maintaining Farnsworth catheter for Excoriated autumn-area along with barrier cream. #2 advanced dementia #3 hypothyroidism #4 history of hypertension #5 dyslipidemia #6 history of hypertension #7 peripheral neuropathy Plan: Continue on current medication regime , antibiotics, monitoring and symptomatic treatment. Antibiotics continue as per infectious disease. GI and DVT prophylaxis in place. Maintain supportive care. Discharge planning in progress for ECF, pre-auth pending. The impression and plan of care has been dictated as directed. : I performed a H&P examination of this patient and discussed the same with the dictator. I agree with the dictator's note. Any additional findings/opinions/ etc. will be noted.
[2016-05-20] MEDS: SODIUM CHLORIDE 0.9% 1,000 ML IV SCH (20:41)
[2016-05-20 21:35] LABS: Glucose,Whole Blood 97 mg/dL (75-99)
[2016-05-21] MEDS: HYDROmorphone 1 MG/ML 1 ML SYRINGE IVP PRN ×3 (00:34→15:17)
[2016-05-21] MEDS: LEVOTHYROXINE 125 MCG TAB PO SCH (06:22)
[2016-05-21 06:56] LABS: Glucose,Whole Blood 90 mg/dL (75-99)
--- NOTE | 2016-05-21 09:24 | CDI ---
In responding to this query, please exercise your independent professional judgment. The [facility] Coding Staff and Clinical Documentation Specialists appreciate your assistance in clarifying documentation, maintaining compliance with coding guidelines, accurately documenting patients condition and capturing severity of illness. The fact that a question is asked does not imply that any particular answer is desired or expected. Communication forms are a method of clarifying documentation and are not made part of the Legal Health Record. Thank you in advance for your clarification. Last Revision, March 2015 Alvino Monterroso [address] [place] [address] Documentation Clarification Form Date: 05/17/2016 11:45:00 AM Resubmitted 05/21/2016 From: Raeann John, [facility], CCDS Admit Date: 05/11/2016 3:08:00 PM Patient Name: Sarah Mukherjee Visit Number: [id number] Discharge Date: Dr. Fabrizio De Leon: On 05/16, the patient underwent a left AKA for a gangrenous left lower extremity ulcer. Patient history/risk factors: COPD, Stroke w/left sided weakness, Dementia, DM II, GERD, Hyperlipidemia, Hypertension, Seizure disorder. Clinical Indicators: Status post left above knee amputation. Treatment: IV Vanco, IV Rocephin, IV Toradol, po Flagyl, po Lasix, postop wound care. In your professional opinion, can you please clarify the location of the patient 's amputation: Amputation: (Definition): HIGH: Amputation at the proximal portion of the shaft of the tibia/fibula or radius/ulna. LOW: Amputation at the distal portion of the shaft of the tibia/fibula or radius/ulna. MID: Amputation at the middle portion of the shaft of the tibia/fibula or radius/ulna. Other Unable to determine Please document in your progress notes and discharge summary in order to capture severity of illness and risk of mortality. Include clinical findings that support your diagnosis. FYI: Press F11 to launch patient chart. Place X here if this finding has no clinical significance, is not applicable or if you are not able to provide any additional documentation. Thank You. MIKE
[2016-05-21] MEDS: ASPIRIN 81 MG CHEW PO SCH (09:28)
[2016-05-21] MEDS: CEPHALEXIN 500 MG CAP PO SCH ×2 (09:28→15:18)
[2016-05-21] MEDS: PANTOPRAZOLE 40 MG TABLET PO SCH (09:28)
[2016-05-21] MEDS: MAGNESIUM OXIDE 250 MG TAB PO SCH (09:29)
[2016-05-21] MEDS: GABAPENTIN 300 MG CAP PO SCH ×2 (09:29→15:18)
[2016-05-21] MEDS: LOSARTAN 50 MG TAB PO SCH (09:29)
[2016-05-21] MEDS: DONEPEZIL 10 MG TAB PO SCH (09:29)
[2016-05-21] MEDS: ENOXAPARIN 40 MG/0.4 ML SYRINGE SQ SCH (09:29)
[2016-05-21] MEDS: levETIRAcetam 500 MG TAB PO SCH (09:29)
[2016-05-21 09:30] LABS: Basophils % (A) 1 %; CH 30.5; CHCM 29.8; Eosinophils # (A) 0.2 k/uL (0-0.7); Eosinophils % (A) 4 %; HDW 2.62; HGB 8.7 gm/dL (11.4-16.0); Hypochromasia Marked; Luc # (Auto) 0.19; Luc % (Auto) 3; Lymphocytes # (A) 1.2 k/uL (1.0-4.8); Lymphocytes % (A) 21 %; MCH 31.1 pg (25.0-35.0); MCHC 30.2 g/dL (31.0-37.0); MCV 103.1 fL (80.0-100.0); Macrocytosis Slight; Mean Platelet Volume 6.9; Monocytes # (A) 0.4 k/uL (0-1.0); Monocytes % (A) 8 %; Neutrophils # (A) 3.6 k/uL (1.3-7.7); Neutrophils % (A) 63 %; RBC 2.81 m/uL (3.80-5.40); RDW 14.3 % (11.5-15.5); WBC 5.7 k/uL (3.8-10.6); WBC (Perox) 5.32
[2016-05-21] MEDS: POTASSIUM CHLORIDE ER 20 MEQ TAB.ER PO SCH (09:30)
[2016-05-21] MEDS: METOPROLOL TARTRATE 50 MG TAB PO SCH (09:30)
[2016-05-21 09:39] LABS: Anion Gap 8 mmol/L; Blood Urea Nitrogen 10 mg/dL (7-17); Calcium 7.8 mg/dL (8.4-10.2); Carbon Dioxide 21 mmol/L (22-30); Chloride 110 mmol/L (98-107); Glucose 85 mg/dL (74-99); Non-African American GFR(MDRD) >60 (>60 ml/min/1.73 sqM); Potassium 5.3 mmol/L (3.5-5.1); Sodium 139 mmol/L (137-145)
--- NOTE | 2016-05-21 09:58 | PN ---
DATE OF SERVICE: 05/20/2016 This 85-year-old woman presented with acute left lower extremity cellulitis, is being closely monitored. Seen and evaluated the patient with the nurse practitioner. No chest pain, no palpitation, no fever. Please refer to the nurse practitioner's notes and impression document as ascribed for information. Possible ECF rehab.
--- NOTE | 2016-05-21 11:02 | PN ---
DATE OF SERVICE: 05/20/2016 Reason for follow-up is left leg infection. INTERVAL HISTORY: The patient is afebrile. She has been breathing comfortably in no distress. No nausea, vomiting or diarrhea has been noticed. She is unable to provide a reliable history. She is currently waiting for placement in rehab. On examination, blood pressure is 152/70 with a pulse of 51, temperature 97.7. She is 99% on room air. General description is an elderly female lying in bed in no distress. RESPIRATORY SYSTEM: Unlabored breathing. Clear to auscultation anteriorly. HEART: S1, S2. Regular rate and rhythm. ABDOMEN: Soft, no tenderness. Left leg wound is currently dressed up. No obvious drainage. DIAGNOSTIC IMPRESSION AND PLAN: Patient with left leg wound failed medical therapy status post [id number] amputation. The patient is on p.o. Keflex. Will continue for about a week to finish a course of therapy. Continue supportive care with you. MIKE
[2016-05-21 12:28] LABS: Glucose,Whole Blood 99 mg/dL (75-99)
[2016-05-21 12:45] LABS: Potassium 5.4 mmol/L (3.5-5.1)
[2016-05-21] MEDS ORDERED: SODIUM POLYSTYRENE SULFONATE 15 GM/60 ML BOTTLE PO STA (14:04)
--- NOTE | 2016-05-21 14:18 | DS ---
DATE OF ADMISSION: 05/11/2016 DATE OF DISCHARGE: FINAL DIAGNOSES: 1. Left lower limb cellulitis with degenerative joint disease and gangrene with wound culture report showing Proteus mirabilis, status post left above knee amputation. 2. Right heel ulcer with Santyl dressings. 3. Farnsworth catheter for excoriated autumn area along with cream. 4. Dementia. 5. Hypothyroidism. 6. History of hypertension. 7. History of gait dysfunction. 8. Hyperlipidemia. 9. History of peripheral neuropathy. 10. Change in mental status, metabolic encephalopathy, acute on chronic. 11. Anemia, microcytic, possibly nutritional. 12. NO CODE, NO CARDIOPULMONARY RESUSCITATION, NO VENT. DISCHARGE DISPOSITION: The patient will be discharged in stable condition with guarded prognosis. HISTORY OF PRESENT ILLNESS: This 85-year-old woman with past medical history of multiple medical problems as mentioned above was admitted with significant infection as mentioned earlier. The patient underwent surgery per Dr. De Leon. Patient care was coordinated. The patient was given antibiotics. The patient seen by multiple consultants including Infectious Disease and as well as Vascular Surgery. On exam, vitals are stable. CARDIOVASCULAR: S1, S2. ABDOMEN: Soft. RESPIRATORY: A few rhonchi. NERVOUS SYSTEM: Unchanged. The patient will be discharged in stable condition with guarded prognosis: 1. Diet is cardiac. 2. Activity limited until follow-up. 3. Follow up with Dr. Stevenson in [facility] in 2 to 3 days. 4. Follow up Dr. Casey as advised. 5. CBC, BMP in 2 to 3 days the [facility]. MEDICATIONS: 1. Tylenol 650 q.6 p.r.n. 2. Ecotrin 81 mg p.o. daily. 3. Keflex 500 mg p.o. t.i.d. for 21 days. 4. Multivitamin 1 p.o. daily. 5. Yogurt 1 p.o. b.i.d. 6. Aricept 10 mg p.o. daily. 7. Lasix 20 mg Friday, Friday, Friday. 8. Neurontin 300 mg p.o. t.i.d. 9. Humalog scale, Accu-Cheks a.c. and at bedtime. Scale is 150 to 200 two units, 201 to 250 four units, 251 to 300 six units, 301 to 350 eight units, 351 to 400 ten units, more than 400 call. 10. Synthroid 125 mcg p.o. daily. 11. Cozaar 50 mg p.o. daily. 12. Slow-Mag 64 mg p.o. daily. 13. Lopressor 50 mg p.o. b.i.d. 14. Protonix 40 mg with breakfast. 15. K-Dur 20 mg p.o. b.i.d. 16. Keppra 500 mg p.o. b.i.d. Once again, the patient will be discharged in stable condition with guarded prognosis.
--- NOTE | 2016-05-21 14:27 | PN ---
DATE OF SERVICE: 05/21/2016 Reason for follow-up: Left leg wound. INTERVAL HISTORY: The patient is afebrile. She has been breathing comfortably. She is unable to provide a reliable history. No nausea or vomiting has been noticed. No diarrhea. Currently awaiting for placement. On examination, blood pressure 135/61 with a pulse of 52, temperature 99.4, she is 95% on room air. General description is an elderly female lying in bed in no distress. RESPIRATORY SYSTEM: Unlabored breathing. Clear to auscultation anteriorly. HEART: S1, S2. Regular. ABDOMEN: Soft. No tenderness. Left AKA wound is dressed , no drainage LABS: Hemoglobin 8.3, white count 5.7, BUN of 10, creatinine 0.76. DIAGNOSTIC IMPRESSION AND PLAN: Patient with left leg wound status post [id number]-[id number] amputation. The patient overall wound is clean, plan to finish therapy with p.o. Keflex for about a week with close outpatient follow-up. Continue supportive care. MIKE
[2016-05-21 15:21] VITALS: BP 123/43; PULSE 59; RESP 16; TEMP 98.8
--- NOTE | 2016-05-24 10:36 | CDI ---
In responding to this query, please exercise your independent professional judgment. The [facility] Coding Staff and Clinical Documentation Specialists appreciate your assistance in clarifying documentation, maintaining compliance with coding guidelines, accurately documenting patients condition and capturing severity of illness. The fact that a question is asked does not imply that any particular answer is desired or expected. Communication forms are a method of clarifying documentation and are not made part of the Legal Health Record. Thank you in advance for your clarification. Last Revision, March 2015 Alvino Monterroso [address] [facility] [place] [address] Documentation Clarification Form Date: 05/17/2016 11:45:00 AM Resubmitted 05/24/2016 From: Raeann John CCS, CCDS Admit Date: 05/11/2016 3:08:00 PM Patient Name: Sarah Mukherjee Visit Number: [id number] Discharge Date: 05/21/2016 PLEASE REVIEW & RESPOND IN DOCUMENTATION PRIOR TO SIGNING. Dr. Fabrizio De Leon: On 05/16, the patient underwent a left AKA for a gangrenous left lower extremity ulcer. Patient history/risk factors: COPD, Stroke w/left sided weakness, Dementia, DM II, GERD, Hyperlipidemia, Hypertension, Seizure disorder. Clinical Indicators: Status post left above knee amputation. Treatment: IV Vanco, IV Rocephin, IV Toradol, po Flagyl, po Lasix, postop wound care. In your professional opinion, can you please clarify the location of the patient 's amputation: Amputation: (Definition): HIGH: Amputation at the proximal portion of the shaft of the tibia/fibula or radius/ulna. LOW: Amputation at the distal portion of the shaft of the tibia/fibula or radius/ulna. MID: Amputation at the middle portion of the shaft of the tibia/fibula or radius/ulna. Other Unable to determine Please document in your progress notes and discharge summary in order to capture severity of illness and risk of mortality. Include clinical findings that support your diagnosis. FYI: Press F11 to launch patient chart. Place X here if this finding has no clinical significance, is not applicable or if you are not able to provide any additional documentation. Thank You. MIKE
--- NOTE | 2016-06-03 09:58 | CDI ---
In responding to this query, please exercise your independent professional judgment. The [facility] Coding Staff and Clinical Documentation Specialists appreciate your assistance in clarifying documentation, maintaining compliance with coding guidelines, accurately documenting patients condition and capturing severity of illness. The fact that a question is asked does not imply that any particular answer is desired or expected. Communication forms are a method of clarifying documentation and are not made part of the Legal Health Record. Thank you in advance for your clarification. Last Revision, March 2015 Alvino Monterroso [address] [facility] [place] [address] Documentation Clarification Form Date: 05/17/2016 11:45:00 AM From: Raeann John Admit Date: 05/11/2016 3:08:00 PM Patient Name: Sarah Mukherjee Visit Number: [id number] Discharge Date: Dr. Fabrizio De Leon On 05/16, the patient underwent a left AKA for a gangrenous left lower extremity ulcer. Patient history/risk factors: COPD, Stroke w/left sided weakness, Dementia, DM II, GERD, Hyperlipidemia, Hypertension, Seizure disorder. Clinical Indicators: Status post left above knee amputation. Treatment: IV Vanco, IV Rocephin, IV Toradol, po Flagyl, po Lasix, postop wound care. In your professional opinion, can you please clarify the location of the patient 's amputation: Amputation: (Definition): HIGH: Amputation at the proximal portion of the shaft of the tibia/fibula or radius/ulna. LOW: Amputation at the distal portion of the shaft of the tibia/fibula or radius /ulna. MID: Amputation at the middle portion of the shaft of the tibia/fibula or radius /ulna. Other Unable to determine Please document in your progress notes and discharge summary in order to capture severity of illness and risk of mortality. Include clinical findings that support your diagnosis. FYI: Press F11 to launch patient chart. Place X here if this finding has no clinical significance, is not applicable or if you are not able to provide any additional documentation. Thank You. MIKE
--- NOTE | 2016-06-04 05:57 | OP ---
DATE OF SERVICE: 05/16/2016 SURGEON: LM GARCIA MD ADDENDUM ON OP NOTE: Level of amputation is mid thigh.
== END 2016-05-21 15:38 | DRG 239 ==
LOC: EC 11:39 → 4MS4W 15:08
PROVIDERS: ADMIT Internal Medicine; ATTEND Internal Medicine
PROC: 0Y6D0Z1 Detachment at Left Upper Leg, High, Open Approach (ICD-10-PCS; principal; 2016-05-16)
DX: E11.52 Type 2 diabetes mellitus with diabetic peripheral angiopathy with gangrene (principal); G93.41 Metabolic encephalopathy; E11.40 Type 2 diabetes mellitus with diabetic neuropathy, unspecified; E11.621 Type 2 diabetes mellitus with foot ulcer; I69.354 Hemiplegia and hemiparesis following cerebral infarction affecting left non-dominant side; L03.116 Cellulitis of left lower limb; L97.309 Non-pressure chronic ulcer of unspecified ankle with unspecified severity; L97.419 Non-pressure chronic ulcer of right heel and midfoot with unspecified severity; L97.929 Non-pressure chronic ulcer of unspecified part of left lower leg with unspecified severity; G40.909 Epilepsy, unspecified, not intractable, without status epilepticus; I48.91 Unspecified atrial fibrillation; I10 Essential (primary) hypertension; G30.9 Alzheimer's disease, unspecified; F02.80 Dementia in other diseases classified elsewhere, unspecified severity, without behavioral disturbance, psychotic disturbance, mood disturbance, and anxiety; J44.9 Chronic obstructive pulmonary disease, unspecified; E03.9 Hypothyroidism, unspecified; E78.5 Hyperlipidemia, unspecified; D50.9 Iron deficiency anemia, unspecified; D53.9 Nutritional anemia, unspecified; I25.10 Atherosclerotic heart disease of native coronary artery without angina pectoris; I45.10 Unspecified right bundle-branch block; K21.9 Gastro-esophageal reflux disease without esophagitis; M19.91 Primary osteoarthritis, unspecified site; Z79.82 Long term (current) use of aspirin; Z83.3 Family history of diabetes mellitus; Z85.3 Personal history of malignant neoplasm of breast; Z87.11 Personal history of peptic ulcer disease; Z99.3 Dependence on wheelchair
CPT/HCPCS: 36415; 71010; 71020; 80048; 80051; 80053; 80202; 82565; 85025; 85610; 85652; 85730; 86140; 87070; 87075; 87077; 87186; 87205; 88307; 88311; 93005; 96365; 96366; 96367; 96375; 99285